=== PATIENT | female | born 1990 | race Caucasian/White ===

== ENCOUNTER 2019-01-20 10:45 | Observation (INO) ==
[2019-01-20 11:08] LABS: Microscopic, Urine URINE MICROSCOPIC (MICROSCOPIC)
[2019-01-20 11:09] LABS: Appearance,Urine CLEAR (Clear); Bilirubin,Urine Negative (Negative); Blood, Urine Negative (Negative); Color,Urine YELLOW (Yellow); Glucose,Urine (UA) Negative (Negative); Ketones,Urine Negative (Negative); Leukocyte Esterase,Urine Negative (Negative); PH,Urine 5.5 (5.0-8.5); Protein,Urine Negative (Negative); Specific Gravity, Urine >= 1.030 (1.005-1.030); Urobilinogen,Urine 0.2 EU/dl (0.2)
[2019-01-20 11:28] LABS: Bacteria,Urine 1+ /lpf; Mucus,Urine 3+ /lpf; WBC,Urine Occasional #/hpf (0-3)
--- NOTE | 2019-01-20 11:47 | Emergency Department Note ---
ED Disposition Clinical Impression: Lumbar scoliosis, Muscle spasm, RLQ abdominal pain, Fibroid uterus Disposition: Still a Patient Condition on Discharge: Fair Referrals: Kim Hayward [Primary Care Provider] - - Critical Care Critical Care Time: No Attestation: On 01/20/19, the high probability of a clinically significant, sudden or life threatening deterioration of the following system(s) required my full and direct attention, intervention and personal management. The time I documented below is in addition to time spent performing reported procedures but includes the following listed in this critical care notation. Medical Decision Making - Medical Records Medical records reviewed: Yes: I reviewed the patient's medical records. - Rodríguez Inquiry Pt receiving controlled substance: No Rodríguez was queried for this patient: No Vital Signs: 01/20/19 10:55 01/20/19 11:56 01/20/19 13:44 Temperature 99 F Temperature Source Oral Pulse Rate [Left Radial] 100 H 98 H 77 Respiratory Rate 16 18 18 Blood Pressure [Right Arm] 103/61 L 104/62 L 132/70 Blood Pressure Mean [Right Arm] 75 76 90 Blood Pressure Source [Right Arm] Automatic Cuff Automatic Cuff Automatic Cuff Blood Pressure Position [Right Arm] Sitting Sitting Sitting 02 Sat by Pulse Oximetry 98 99 98 Oxygen Delivery Method Room Air Room Air Room Air 01/20/19 14:41 Temperature Temperature Source Pulse Rate [Left Radial] 65 Respiratory Rate Blood Pressure [Right Arm] 98/57 L Blood Pressure Mean [Right Arm] 70 Blood Pressure Source [Right Arm] Automatic Cuff Blood Pressure Position [Right Arm] Supine 02 Sat by Pulse Oximetry 97 Oxygen Delivery Method Room Air - Lab Data Lab Results 01/20/19 10:55: Urine Color Yellow, Urine Appearance Clear, Urine pH 5.5, Ur Specific [place] >= 1.030, Urine Protein Negative, Urine Glucose (UA) Negative, Urine Ketones Negative, Urine Blood Negative, Urine Nitrate Negative, Urine Bilirubin Negative, Urine Urobilinogen 0.2, Ur Leukocyte Esterase Negative, Urine WBC Occasional, Ur Squamous Epith Cells 5-10, Urine Bacteria 1+, Urine M ucus 3+ 01/20/19 10:55: Urine HCG, Qual Negative 01/20/19 10:55: Urine Opiates Screen Negative, Urine Methadone Screen Negative, Ur Barbituates Screen Negative, Ur Phencyclidine Scrn Negative, Ur Amphetamines Screen Negative, U Benzodiazepines Scrn Negative, Urine Cocaine Screen Negative, U Marijuana (THC) Screen Negative 01/20/19 11:45: WBC 7.3, RBC 4.63, Hgb 13.3, Hct 40.3, MCV 87.2, MCH 28.7, MCHC 32.9, RDW 13.1, Plt Count 267, MPV 9.2, Neut % (Auto) 83.2 H, Lymph % (Auto) 13.5, [place] % (Auto) 2.9, Eos % (Auto) 0.3, Baso % (Auto) 0.2, Neut # (Auto) 6.1, Lymph # (Auto) 1.0, [place] # (Auto) 0.2, Eos # (Auto) 0.0, Baso # (Auto) 0.0 01/20/19 11:45: Sodium 138, Potassium 3.6, Chloride 102, Carbon Dioxide 25, Anion Gap 14.6, BUN 9, Creatinine 0.67, Estimated Creat Clear 121, Estimated GFR 103, Est GFR ( Amer) 125, Glucose 110 H, Calcium 8.7, Total Bilirubin 0.2, AST 13 L, ALT 15, Alkaline Phosphatase 73, Total Protein 7.7, Albumin 3.9, Globulin 3.8 H, Albumin/Globulin Ratio 1.0 L, Lipase 83, Plasma/Serum Alcohol 0 01/20/19 11:45: Lactate 0.7 01/20/19 11:56: Influenza Type A Ag Negative, Influenza Type B Ag Negative 01/20/19 11:56: Group A Strep Rapid Negative Result diagrams: 01/20/19 11:45 01/20/19 11:45 Orders (Tests/Meds): ED MEDICATIONS Discontinued Medications Generic Name Dose Route Start Last Admin Trade Name Freq PRN Reason Stop Dose Admin Diatrizoate Meglum/Diatrizoate Sod 30 ml 01/20/19 11:42 01/20/19 12:03 Gastrografin 66%-10% 30ml PO 01/20/19 11:43 30 ml ONCE ONE Administration Ioversol 75 ml 01/20/19 14:19 01/20/19 14:23 Rad-Optiray 350 100ml Vial IV 01/20/19 14:20 75 ml ONCE ONE Administration Ketorolac Tromethamine 30 mg 01/20/19 11:42 01/20/19 12:03 Toradol 30mg/Ml Vial IV 01/20/19 11:43 30 mg ONCE ONE Administration Morphine Sulfate 2 mg 01/20/19 14:44 01/20/19 14:57 Morphine 2mg/Ml Syringe IV 01/20/19 14:45 2 mg ONCE ONE Administration Sodium Chloride 10 ml 01/20/19 14:19 01/20/19 14:23 Rad-Saline Flush 10ml Syringe IV 01/20/19 14:20 10 ml ONCE ONE Administration ORDERS Category Date Time Status CT abdomen pelvis w con Stat Cat Scan 01/20/19 11:42 Taken Blood Culture Stat Micro 01/20/19 11:45 Received Strep Screen Confirmation Stat Micro 01/20/19 11:56 Received Medical Decision Narrative: I reviewed the CT scan with Dr. Graham the radiologist who suspected early appendicitis due to the large size of the appendix 1 cm and partial filling. There is no local inflammation. I spoke with the patient was agreeable to be admitted to [facility] for possible early appendicitis. 1500 spoke with on-call surgeon Dr. Melgoza who agreed to admit the patient for observation General Adult HPI - General Chief complaint: PAIN Stated complaint: lower back pain, fever Time Seen by Provider: 01/20/19 11:00 Mode of Arrival: Ambulatory Limitations: No Limitations Description of Symptoms (Recalled from ER Triage Doc. by RN): to ed per pvt car with c/o lt side lower back pain radiates to rt side, fever starting lastnight. denies any nausea, vomiting, urinary symptoms. cpta tylenol 1gm at 9am - History of Present Illness HPI narrative: Years old white female 2 para 2 A0 last menstrual period was 2 weeks ago. She has past medical history of scoliosis, no past surgical history, her had a vasectomy. She is on no regular medications and has allergy to sulfa. She had a drink at 8 PM last night otherwise she has no habits habits of medical importance. Yesterday at midnight she developed left lower back pain that is rated 9/10. The detected subjective fever, this morning she took Tylenol and returned to [place] be seen in [facility] ED. The patient continues to complain of left lower back pain rated 7/10 sharp in character worse with movement. She has diffuse nonspecific abdominal pain with no nausea no vomiting no diarrhea. She had small bowel movement yesterday. Onset (ago): hour(s) (11 hours.) Location: back, abdomen Radiation: non-radiation Severity: severe Severity scale (1-10): 9 Quality: sharp Consistency: constant Relieving factors: immobilization, rest, other (She is laying on the left side in a position. ) Exacerbating factors: movement Associated symptoms: fever/chills Treatments prior to arrival: other ([id number] Tylenol. ) - Related Data Home Medications Medication Instructions Recorded Confirmed No Known Home Medications 01/20/19 01/20/19 Allergies Allergy/AdvReac Type Severity Reaction Status Date / Time azithromycin Allergy Mild Verified 12/24/18 15:37 Sulfa (Sulfonamide Allergy Mild Verified 12/24/18 15:37 Antibiotics) [facility] History - Hepatitis A Screen Drug use history?: No High risk sexual behaviors?: No History of sexually transmitted infection?: No Currently employed?: No Childcare worker?: No Do you have indoor plumbing?: No Do you have electricity?: Yes Attestation statement:: This patient has been screened for Hepatitis A risk factors. I have reviewed the patient's past medical history: Yes - Social History Smoking Status: Current every day smoker Tobacco Type: cigarettes # Packs/Day (cigarettes): 0 Alcohol Intake: never Occupational Status: employed - Psychiatric History Expresses thoughts of harming self/others: None Suicide Plan Description: No Plan ROS Obtained: Yes All systems reviewed & no additional complaints Physical Exam - General General appearance: alert, in no apparent distress - Head Head exam: atraumatic, normocephalic, normal inspection - Eye Eye exam: Present: normal appearance, PERRL, EOMI. Absent: scleral icterus, nystagmus - ENT ENT exam: Present: normal exam, normal oropharynx, mucous membranes moist, TM's normal bilaterally, normal external ear exam - Neck Neck exam: Present: normal inspection, full ROM, trachea midline. Absent: tenderness, meningismus, lymphadenopathy - Chest Chest inspection: Present: normal inspection, symmetric chest wall rise. Absent : tenderness - Respiratory Respiratory exam: Present: normal lung sounds bilaterally. Absent: respiratory distress, wheezes - Cardiovascular Cardiovascular exam: Present: regular rate, normal rhythm, normal heart sounds. Absent: JVD - Abdominal Exam Abdominal exam: Present: soft, tenderness, normal bowel sounds, tenderness at McBurney's Point, other (Soft abdomen with right lower quadrant rebound tenderness no guarding no rigidity, positive bowel sounds. ). Absent: distention, guarding, rebound, rigidity, Mathis's sign - External exam: Present: normal external exam - Extremities Exam Extremities exam: Present: normal inspection, full ROM, normal capillary refill, other (Equal bilateral femoral pulse.). Absent: tenderness, pedal edema, joint swelling, calf tenderness - Back Exam Back exam: Present: normal inspection, tenderness, muscle spasm, paraspinal tenderness, other (Severe lumbosacral kyphoscoliosis with palpable left lumbar paraspinal muscle spasm. ). Absent: CVA tenderness (R), CVA tenderness (L), vertebral tenderness - Neurological Exam Neurological exam: Present: alert, oriented X3, CN II-XII intact, motor sensory deficit, reflexes normal - Psychiatric Psychiatric exam: Present: normal affect, normal mood - Skin Skin exam: Present: warm, dry, intact, normal color - Lymphatic Lymphatic Findings: no adenopathy
[2019-01-20 12:11] LABS: Basophils % 0.2 % (0.1-2.0); Eosinophils % 0.3 % (0.1-12.0); Hematocrit 40.3 % (37.0-47.0); Hemoglobin 13.3 g/dL (12.2-16.2); Lymphocytes % 13.5 % (10-50); Mean Corpuscular HGB Conc 32.9 g/dL (31.8-35.4); Mean Corpuscular Hemoglobin 28.7 pg (27.0-31.2); Mean Corpuscular Volume 87.2 fl (81-99); Mean Platelet Volume 9.2 fl (7.4-10.4); Monocytes # 0.2 K/mm3 (0.1-1.0); Monocytes % 2.9 % (1.7-9.3); Neutrophils # 6.1 K/mm3 (1.8-7.8); Neutrophils % 83.2 % (37.0-80.0); Platelet Count 267 K/mm3 (142-424); Red Blood Count 4.63 M/mm3 (4.20-5.40); Red Cell Distribution Width 13.1 % (11.5-17.5); White Blood Count 7.3 K/mm3 (4.8-10.8)
[2019-01-20 12:18] LABS: Amphetamine/Metha Screen,Urine Negative ng/mL (<1000); Barbiturates Screen,Urine Negative ng/mL (<200); Benzodiazepines Screen,Urine Negative ng/mL (<200); Cannabinoid Screen,Urine Negative ng/mL (<50); Cocaine Screen,Urine Negative ng/mL (<300); Methadone Screen,Urine Negative ng/mL (<300); Opiate Screen,Urine Negative ng/mL (<300); Phencyclidine Screen,Urine Negative ng/mL (<25)
[2019-01-20 12:29] LABS: Albumin Level 3.9 gm/dL (3.4-5.0); Anion Gap 14.6 mEq/L (5-15); Bilirubin,Total 0.2 mg/dL (0.2-1.0); Calcium 8.7 mg/dL (8.5-10.1); Globulin 3.8 gm/dl (1.3-3.2); Potassium 3.6 mmoL/L (3.5-5.1); Total Protein,Serum 7.7 gm/dL (6.4-8.2)
--- NOTE | 2019-01-20 17:53 | History & Physical Report ---
HPI HPI: This is a 29-year-old female who presented to the emergency department with a 12+ hour history of pain in the mid and lower abdomen and back. She states that she had pain in her mid abdomen and left flank/back. She was concerned about a possible kidney stone. No dysuria. No hematuria. Some nausea. Some decreased appetite. Possible low-grade fevers last night. Her pain increased in intensity and began to migrate and now her most significant pain is "kind of in the lower abdomen on both sides". She does state that she is more tender in the right lower quadrant. A CT scan in the emergency department revealed changes consistent with early appendicitis. [facility] History Medical History: Denies:: Cancer, Diabetes Mellitus Type 1, Diabetes Mellitus Type 2, MRSA *Have you ever received a pneumonia vaccine?: No *Have you received a flu vaccine this season?: Yes Amputation: No Fractures: No - *Social History Educational Level: Attended College Smoking Status: Current some day smoker Tobacco Type: cigarettes # Packs/Day (cigarettes): 1 Alcohol Intake: never *Occupational Status:: employed Housing: house Household Members: spouse *Travel in the last 8 weeks: None - Psychiatric History Expresses thoughts of harming self/others: None Suicide Plan Description: No Plan Family Hx:: Cancer, Coronary Artery Disease, Diabetes, Hyperlipidemia Review of Systems - Constitutional Reports anorexia, Denies chills - Eyes Denies change in vision - ENT Denies change in voice - *Cardiovascular Denies chest pain - *Respiratory Denies cough - *Gastrointestinal Reports abdominal pain, Reports nausea - *Genitourinary Denies abnormal vaginal bleeding - *Musculoskeletal Denies joint pain - Integumentary/Breasts Denies hair loss - *Neurologic Denies abnormal movements - Psychiatric Denies anxiety - Endocrine Denies cold intolerance - Hematologic/Lymphatic Denies easy bleeding - Allergic/Immunologic Denies GI upset with certain foods Meds Home Medications Medication Instructions Recorded Confirmed Type No Known Home Medications 01/20/19 01/20/19 History Allergies Allergy/AdvReac Type Severity Reaction Status Date / Time azithromycin Allergy Mild Verified 12/24/18 15:37 Sulfa (Sulfonamide Allergy Mild Verified 12/24/18 15:37 Antibiotics) Exam Vital signs and Labs for Last 24 Hours: Temp Pulse Resp BP Pulse Ox 97.8 F 111 H 20 109/75 L 99 01/20/19 15:58 01/20/19 15:58 01/20/19 15:58 01/20/19 15:58 01/20/19 16:15 Laboratory Results - last 24 hr 01/20/19 10:55: Urine Color Yellow, Urine Appearance Clear, Urine pH 5.5, Ur Specific [place] >= 1.030, Urine Protein Negative, Urine Glucose (UA) Negative, Urine Ketones Negative, Urine Blood Negative, Urine Nitrate Negative, Urine Bilirubin Negative, Urine Urobilinogen 0.2, Ur Leukocyte Esterase Negative, Urine WBC Occasional, Ur Squamous Epith Cells 5-10, Urine Bacteria 1+, Urine Mucus 3+ 01/20/19 10:55: Urine HCG, Qual Negative 01/20/19 10:55: Urine Opiates Screen Negative, Urine Methadone Screen Negative, Ur Barbituates Screen Negative, Ur Phencyclidine Scrn Negative, Ur Amphetamines Screen Negative, U Benzodiazepines Scrn Negative, Urine Cocaine Screen Negative, U Marijuana (THC) Screen Negative 01/20/19 11:45: WBC 7.3, RBC 4.63, Hgb 13.3, Hct 40.3, MCV 87.2, MCH 28.7, MCHC 32.9, RDW 13.1, Plt Count 267, MPV 9.2, Neut % (Auto) 83.2 H, Lymph % (Auto) 13.5, [place] % (Auto) 2.9, Eos % (Auto) 0.3, Baso % (Auto) 0.2, Neut # (Auto) 6.1, Lymph # (Auto) 1.0, [place] # (Auto) 0.2, Eos # (Auto) 0.0, Baso # (Auto) 0.0 01/20/19 11:45: Sodium 138, Potassium 3.6, Chloride 102, Carbon Dioxide 25, Anion Gap 14.6, BUN 9, Creatinine 0.67, Estimated Creat Clear 121, Estimated GFR 103, Est GFR ( Amer) 125, Glucose 110 H, Calcium 8.7, Total Bilirubin 0.2, AST 13 L, ALT 15, Alkaline Phosphatase 73, Total Protein 7.7, Albumin 3.9, Globulin 3.8 H, Albumin/Globulin Ratio 1.0 L, Lipase 83, Plasma/Serum Alcohol 0 01/20/19 11:45: Lactate 0.7 01/20/19 11:56: Influenza Type A Ag Negative, Influenza Type B Ag Negative 01/20/19 11:56: Group A Strep Rapid Negative I & O for Last 24 hours: Intake & Output 01/18/19 01/19/19 01/20/19 01/21/19 11:59 11:59 11:59 11:59 Intake Total 240 / 240 Balance 240 / 240 Weight 138 lb 140 lb - Constitutional no acute distress - *Routine HEENT Exam Head: Present: normocephalic, atraumatic ENT: Present: mucous membranes moist - *Routine Neck Exam Present: full ROM - Routine Chest/Breast/Axilla Exam Chest wall: Absent: tenderness - *Routine Respiratory Exam Absent: respiratory distress - *Routine Cardiovascular Exam Present: RRR - *Routine Abdominal Exam Present: soft, tenderness, guarding Comments: TTP is worse in RLQ Voluntary guarding the right lower quadrant - *Routine Extremities Exam Present: full ROM. Absent: cyanosis, clubbing, edema - Routine Back/Spine/Pelvis Exam Back/Spine: Present: full ROM - *Routine Skin Exam Present: intact - *Routine Neurological Exam Present: alert, oriented X3 - Routine Psychiatric Exam Present: normal affect Results - Results Lab Results Last 24 Hours:: Laboratory Results - last 24 hr 01/20/19 10:55: Urine Color Yellow, Urine Appearance Clear, Urine pH 5.5, Ur Specific [place] >= 1.030, Urine Protein Negative, Urine Glucose (UA) Negative, Urine Ketones Negative, Urine Blood Negative, Urine Nitrate Negative, Urine Bi lirubin Negative, Urine Urobilinogen 0.2, Ur Leukocyte Esterase Negative, Urine WBC Occasional, Ur Squamous Epith Cells 5-10, Urine Bacteria 1+, Urine Mucus 3+ 01/20/19 10:55: Urine HCG, Qual Negative 01/20/19 10:55: Urine Opiates Screen Negative, Urine Methadone Screen Negative, Ur Barbituates Screen Negative, Ur Phencyclidine Scrn Negative, Ur Amphetamines Screen Negative, U Benzodiazepines Scrn Negative, Urine Cocaine Screen Negative, U Marijuana (THC) Screen Negative 01/20/19 11:45: WBC 7.3, RBC 4.63, Hgb 13.3, Hct 40.3, MCV 87.2, MCH 28.7, MCHC 32.9, RDW 13.1, Plt Count 267, MPV 9.2, Neut % (Auto) 83.2 H, Lymph % (Auto) 13.5, [place] % (Auto) 2.9, Eos % (Auto) 0.3, Baso % (Auto) 0.2, Neut # (Auto) 6.1, Lymph # (Auto) 1.0, [place] # (Auto) 0.2, Eos # (Auto) 0.0, Baso # (Auto) 0.0 01/20/19 11:45: Sodium 138, Potassium 3.6, Chloride 102, Carbon Dioxide 25, Anion Gap 14.6, BUN 9, Creatinine 0.67, Estimated Creat Clear 121, Estimated GFR 103, Est GFR ( Amer) 125, Glucose 110 H, Calcium 8.7, Total Bilirubin 0.2, AST 13 L, ALT 15, Alkaline Phosphatase 73, Total Protein 7.7, Albumin 3.9, Globulin 3.8 H, Albumin/Globulin Ratio 1.0 L, Lipase 83, Plasma/Serum Alcohol 0 01/20/19 11:45: Lactate 0.7 01/20/19 11:56: Influenza Type A Ag Negative, Influenza Type B Ag Negative 01/20/19 11:56: Group A Strep Rapid Negative CT scan - abdomen: report reviewed, image reviewed CT scan - pelvis: report reviewed, image reviewed Assessment and Plan (1) Appendicitis Current visit: Yes Status: Acute Qualifiers: Appendicitis type: acute appendicitis Appendicitis gangrene presence: without gangrene Appendicitis perforation presence: without perforation Appendicitis abscess presence: without abscess Category: Medical Code(s): K37 - Unspecified appendicitis She is being scheduled for laparoscopic appendectomy. I have discussed the risks and benefits including, but not limited to: Bleeding Infection Damage to surrounding tissue Inherent risks of sedation The patient agrees to proceed.
--- NOTE | 2019-01-20 19:49 | Operative Note ---
Date of procedure: 01/20/19 Pre-op Diagnosis:: Appendicitis Post-op Diagnosis:: Same Procedure performed:: Laparoscopic appendectomy Surgeon:: Dainel Hernandez MD ASSISTANT MANAGER/EMBALMER:: Evan Wayne Anesthesia: KEHINDE Estimated blood loss (mL): 10 Operative findings:: Inflamed/thickened/enlarged appendix (most significant distally) Operative note:: After informed consent was obtained the patient was taken to the operating room and placed in the supine position. General anesthesia was induced and her abdomen was prepped and draped in a sterile fashion. After infiltration of local anesthetic an infraumbilical incision was made. A Veress needle was placed in position. The abdomen was insufflated. A 12 mm optical trocar was placed in position. Under direct visualization a 5 mm trocar was placed in the suprapubic position and an additional 5 mm trocar was placed in the left lower quadrant. The appendix was carefully elevated. The appendix was somewhat inflamed and enlarged/thickened with these findings found to be more pronounced distally. A window was made in the mesoappendix at its base. An EndoGIA stapler was utilized to transect the appendix at the base. The mesoappendix was taken with harmonic stewart. The appendix was placed in a retrieval bag and removed through the infraumbilical trocar site. The right lower quadrant was thoroughly irrigated. The irrigant was evacuated. No sign of bleeding or injury noted. Fascia at the infraumbilical trocar site was reapproximated with interrupted 0 Ethibond after pneumoperitoneum was released. The remaining trocars were removed. Skin was closed with 4-0 Monocryl in a subcuticular fashion. Steri-Strips were applied. The patient's anesthetic agents were rever sed and she was extubated prior to transfer to recovery. Condition: stable Disposition: PACU Specimens:: Appendix Complications:: No immediate
--- NOTE | 2019-01-20 19:50 | Progress Note ---
[facility] Anesthesia Checklist - Patient Identification Patient Identification: Arm Band - Structural Data Admitted From: Inpatient Planned Operative Procedure/s: laparoscopic appendectomy Consent for Planned Operative Procedure(s) Verified: Yes Verified Documents: Surgical Consent, History and Physical - NPO Status Verified Time NPO: 00:00 - Additional verifications Anesthesia Reactions: No - Airway Assessment C-Spine Mobility Assessed: Yes (mp2) TMJ Mobility Assessed: Yes Dentition: Good Dentition - Neurological Assessment Level of Consciousness: Awake, Alert - Anesthesia Plan Anesthesia Risk discussed: Yes Anesthesia Plan: Verified ASA Class: II (e) [facility] History I have reviewed the patient's past medical history: Yes Medical History: Denies:: Cancer, Diabetes Mellitus Type 1, Diabetes Mellitus Type 2, MRSA *Have you ever received a pneumonia vaccine?: No *Have you received a flu vaccine this season?: Yes Other Surgeries: Yes: Other (bladder surgery) Amputation: No Fractures: No - *Social History Educational Level: Attended College Smoking Status: Current some day smoker Tobacco Type: cigarettes # Packs/Day (cigarettes): 1 Alcohol Intake: never *Occupational Status:: employed Housing: house Household Members: spouse *Travel in the last 8 weeks: None - Psychiatric History Expresses thoughts of harming self/others: None Suicide Plan Description: No Plan Family Hx:: Cancer, Coronary Artery Disease, Diabetes, Hyperlipidemia
--- NOTE | 2019-01-20 19:51 | Progress Note ---
[facility] Anesthesia Record Part I Intake, IV Amount: 1,300 Estimated blood loss (mL): 10 Urine output (mL): 100 Blood Pressure: 126/70 SaO2: 97 Pulse Rate: 96 Respiratory Rate: 16 Temperature: 98.7 F Patient is:: Drowsy, Stable Stable to PACU at:: 19:45
--- NOTE | 2019-01-20 19:51 | Progress Note ---
[facility] Anesthesia Record Part II Discharge Time: 20:15 Destination: 2nd floor PACU nurse assessment reviewed?: Yes Patient Condition:: Good Anesthesia Complications:: None Swallowing reflex intact?: Yes Cyanosis?: No
[2019-01-21 04:55] LABS: Hemoglobin 10.8 g/dL (12.2-16.2); Lymphocytes # 0.5 K/mm3 (0.7-4.5); Mean Corpuscular HGB Conc 32.6 g/dL (31.8-35.4); Mean Corpuscular Hemoglobin 28.8 pg (27.0-31.2); Mean Corpuscular Volume 88.3 fl (81-99); Monocytes # 0.1 K/mm3 (0.1-1.0); Neutrophils # 7.1 K/mm3 (1.8-7.8); Platelet Count 215 K/mm3 (142-424); Red Blood Count 3.73 M/mm3 (4.20-5.40); Red Cell Distribution Width 13.4 % (11.5-17.5); White Blood Count 7.7 K/mm3 (4.8-10.8)
[2019-01-21 04:57] LABS: Anion Gap 11.8 mEq/L (5-15); Calcium 8.1 mg/dL (8.5-10.1); Potassium 3.8 mmoL/L (3.5-5.1)
[2019-01-21 05:07] LABS: Lymphocytes % 3 % (10-50); Neutrophils % 86 % (42-76); RBC Morphology Normal; Total Cells Counted 100
--- NOTE | 2019-01-21 09:07 | Pharmacy Consult Notes ---
[facility] Pharmacy VTE Monitoring - Patient Demographics Admission date: 01/20/19 Report Date: 01/21/19 Time: 09:07 Allergies/Adverse Reactions: Patient Allergies azithromycin Allergy (Mild, Verified 12/24/18 15:37) Sulfa (Sulfonamide Antibiotics) Allergy (Mild, Verified 12/24/18 15:37) Height: 1.73 m Weight: 63.503 kg Patient Problems: Current Active Problems Lumbar scoliosis (Acute) Muscle spasm (Acute) RLQ abdominal pain (Acute) Fibroid uterus (Acute) Appendicitis (Acute) - VTE Risk Labs: VTE Related Lab Results Hgb 10.8 g/dL (12.2-16.2) L D 01/21/19 04:25 Hct 33.0 % (37.0-47.0) L 01/21/19 04:25 Plt Count 215 K/mm3 (142-424) 01/21/19 04:25 BUN 5 mg/dL (7-18) L D 01/21/19 04:25 Creatinine 0.59 mg/dL (0.55-1.02) 01/21/19 04:25 Estimated Creat Clear 140 mL/min (50-200) 01/21/19 04:25 Was VTE Risk Assessment Performed: Yes VTE Score: 0 VTE Risk Level: Very Low Risk - Prophylaxis VTE Prophylaxis Ordered?: Yes Types of VTE Prophylaxis: TEDS Knee High Location of Applied Device: Bilateral Lower Extremeties - VTE Diagnosis Confirmed Treatment or plan recommended: Continue Current Treatment
--- NOTE | 2019-01-21 09:14 | Progress Note ---
Subjective Patient reports: feels better Exam Vital signs and Labs for Last 24 Hours: Temp Pulse Resp BP Pulse Ox 98.8 F 76 16 96/50 L 98 01/21/19 08:00 01/21/19 08:00 01/21/19 08:00 01/21/19 08:00 01/21/19 08:03 Laboratory Results - last 24 hr 01/20/19 10:55: Urine Color Yellow, Urine Appearance Clear, Urine pH 5.5, Ur Specific [place] >= 1.030, Urine Protein Negative, Urine Glucose (UA) Negative, Urine Ketones Negative, Urine Blood Negative, Urine Nitrate Negative, Urine Bilirubin Negative, Urine Urobilinogen 0.2, Ur Leukocyte Esterase Negative, Urine WBC Occasional, Ur Squamous Epith Cells 5-10, Urine Bacteria 1+, Urine Mucus 3+ 01/20/19 10:55: Urine HCG, Qual Negative 01/20/19 10:55: Urine Opiates Screen Negative, Urine Methadone Screen Negative, Ur Barbituates Screen Negative, Ur Phencyclidine Scrn Negative, Ur Amphetamines Screen Negative, U Benzodiazepines Scrn Negative, Urine Cocaine Screen Negative, U Marijuana (THC) Screen Negative 01/20/19 11:45: WBC 7.3, RBC 4.63, Hgb 13.3, Hct 40.3, MCV 87.2, MCH 28.7, MCHC 32.9, RDW 13.1, Plt Count 267, MPV 9.2, Neut % (Auto) 83.2 H, Lymph % (Auto) 13.5, [place] % (Auto) 2.9, Eos % (Auto) 0.3, Baso % (Auto) 0.2, Neut # (Auto) 6.1, Lymph # (Auto) 1.0, [place] # (Auto) 0.2, Eos # (Auto) 0.0, Baso # (Auto) 0.0 01/20/19 11:45: Sodium 138, Potassium 3.6, Chloride 102, Carbon Dioxide 25, Anion Gap 14.6, BUN 9, Creatinine 0.67, Estimated Creat Clear 121, Estimated GFR 103, Est GFR ( Amer) 125, Glucose 110 H, Calcium 8.7, Total Bilirubin 0 .2, AST 13 L, ALT 15, Alkaline Phosphatase 73, Total Protein 7.7, Albumin 3.9, Globulin 3.8 H, Albumin/Globulin Ratio 1.0 L, Lipase 83, Plasma/Serum Alcohol 0 01/20/19 11:45: Lactate 0.7 01/20/19 11:56: Influenza Type A Ag Negative, Influenza Type B Ag Negative 01/20/19 11:56: Group A Strep Rapid Negative 01/20/19 18:40: Urine Color Yellow, Urine Appearance Clear, Urine pH 7.5, Ur Specific [place] 1.015, Urine Protein Negative, Urine Glucose (UA) Negative, Urine Ketones Negative, Urine Blood Negative, Urine Nitrate Negative, Urine Bilirubin Negative, Urine Urobilinogen 0.2, Ur Leukocyte Esterase Negative, Urine WBC 3-5, Ur Squamous Epith Cells 5-10, Ur Renal Epithelial Cell 3-5 01/21/19 04:25: WBC 7.7, RBC 3.73 L, Hgb 10.8 L D, Hct 33.0 L, MCV 88.3, MCH 28.8, MCHC 32.6, RDW 13.4, Plt Count 215, MPV 10.0, Neut % (Auto) 92.0 H, Lymph % (Auto) 7.0 L, [place] % (Auto) 1.0 L, Eos % (Auto) 0.0 L, Baso % (Auto) 0.0 L, Neut # (Auto) 7.1, Lymph # (Auto) 0.5 L, [place] # (Auto) 0.1, Eos # (Auto) 0.0, Baso # (Auto) 0.0, Total Counted 100, Neutrophils % (Manual) 86 H, Band Neutrophils % 11.0 H, Lymphocytes % (Manual) 3 L, Platelet Estimate Normal, RBC Morphology Normal 01/21/19 04:25: Sodium 140, Potassium 3.8, Chloride 106, Carbon Dioxide 26, Anion Gap 11.8, BUN 5 L D, Creatinine 0.59, Estimated Creat Clear 140, Estimated GFR 120, Est GFR ( Amer) 145, Glucose 161 H D, Calcium 8.1 L I & O for Last 24 hours: Intake & Output 01/18/19 01/19/19 01/20/19 01/21/19 11:59 11:59 11:59 11:59 Intake Total 3300 / 3300 Balance 3300 / 3300 Weight 138 lb 140 lb Microbiology Reports for the Last 24 Hours: Microbiology 01/20/19 11:56 Throat Group A Streptococcus Screen (DONELL) - Final Negative for Group A Streptococcus. - Constitutional no acute distress - *Routine Respiratory Exam Absent: respiratory distress - *Routine Abdominal Exam Present: soft Comments: dressings dry Progress Note: A&P (1) Appendicitis Status: Acute Assessment and plan: stable s/p laparoscopic appendectomy Discharge home Current Visit: Yes
--- NOTE | 2019-01-21 09:14 | Discharge Summary ---
General - General Admission date:: 01/20/19 Discharge date: 01/21/19 HPI HPI: This is a 29-year-old female who presented to the emergency department with a 12+ hour history of pain in the mid and lower abdomen and back. She states that she had pain in her mid abdomen and left flank/back. She was concerned about a possible kidney stone. No dysuria. No hematuria. Some nausea. Some decreased appetite. Possible low-grade fevers last night. Her pain increased in intensity and began to migrate and now her most significant pain is "kind of in the lower abdomen on both sides". She does state that she is more tender in the right lower quadrant. A CT scan in the emergency department revealed changes consistent with early appendicitis. Hospital Course Hospital Course: The patient underwent laparoscopic appendectomy. Please see operative report for detail. Postoperatively she progressed well. She remained afebrile with stable and normal vital signs. She was deemed appropriate for discharge on the morning of postoperative day 1. Objective Vital signs: Temp Pulse Resp BP Pulse Ox 98.8 F 76 16 96/50 L 98 01/21/19 08:00 01/21/19 08:00 01/21/19 08:00 01/21/19 08:00 01/21/19 08:03 no acute distress - *Routine HEENT Exam Head: Present: normocephalic, atraumatic - *Routine Neck Exam Present: full ROM - Routine Chest/Breast/Axilla Exam Chest wall: Absent: tenderness - *Routine Respiratory Exam Absent: respiratory distress - *Routine Cardiovascular Exam Present: RRR - *Routine Abdominal Exam Present: soft, tenderness Comments: mildly TTP in RLQ - *Routine Extremities Exam Present: full ROM - Routine Back/Spine/Pelvis Exam Back/Spine: Present: full ROM - *Routine Skin Exam Present: intact - *Routine Neurological Exam Present: alert, oriented X3 - Routine Psychiatric Exam Present: normal affect Results Labs on day of discharge: Labs from last 24 hours 01/21/19 01/21/19 01/20/19 04:25 04:25 18:40 WBC 7.7 RBC 3.73 L Hgb 10.8 L D Hct 33.0 L MCV 88.3 MCH 28.8 MCHC 32.6 RDW 13.4 Plt Count 215 MPV 10.0 Neut % (Auto) 92.0 H Lymph % (Auto) 7.0 L [place] % (Auto) 1.0 L Eos % (Auto) 0.0 L Baso % (Auto) 0.0 L Neut # (Auto) 7.1 Lymph # (Auto) 0.5 L [place] # (Auto) 0.1 Eos # (Auto) 0.0 Baso # (Auto) 0.0 Total Counted 100 Neutrophils % (Manual) 86 H Band Neutrophils % 11.0 H Lymphocytes % (Manual) 3 L Platelet Estimate Normal RBC Morphology Normal Sodium 140 Potassium 3.8 Chloride 106 Carbon Dioxide 26 Anion Gap 11.8 BUN 5 L D Creatinine 0.59 Estimated Creat Clear 140 Estimated GFR 120 Est GFR ( Amer) 145 Glucose 161 H D Lactate Calcium 8.1 L Total Bilirubin AST ALT Alkaline Phosphatase Total Protein Albumin Globulin Albumin/Globulin Ratio Lipase Urine Color Yellow Urine Appearance Clear Urine pH 7.5 Ur Specific [place] 1.015 Urine Protein Negative Urine Glucose (UA) Negative Urine Ketones Negative Urine Blood Negative Urine Nitrate Negative Urine Bilirubin Negative Urine Urobilinogen 0.2 Ur Leukocyte Esterase Negative Urine WBC 3-5 Ur Squamous Epith Cells 5-10 Ur Renal Epithelial Cell 3-5 Urine Bacteria Urine Mucus Urine HCG, Qual Urine Opiates Screen Urine Methadone Screen Ur Barbituates Screen Ur Phencyclidine Scrn Ur Amphetamines Screen U Benzodiazepines Scrn Urine Cocaine Screen U Marijuana (THC) Screen Plasma/Serum Alcohol Influenza Type A Ag Influenza Type B Ag Group A Strep Rapid 01/20/19 01/20/19 01/20/19 11:56 11:56 11:45 WBC RBC Hgb Hct MCV MCH MCHC RDW Plt Count MPV Neut % (Auto) Lymph % (Auto) [place] % (Auto) Eos % (Auto) Baso % (Auto) Neut # (Auto) Lymph # (Auto) [place] # (Auto) Eos # (Auto) Baso # (Auto) Total Counted Neutrophils % (Manual) Band Neutrophils % Lymphocytes % (Manual) Platelet Estimate RBC Morphology Sodium Potassium Chloride Carbon Dioxide Anion Gap BUN Creatinine Estimated Creat Clear Estimated GFR Est GFR ( Amer) Glucose Lactate 0.7 Calcium Total Bilirubin AST ALT Alkaline Phosphatase Total Protein Albumin Globulin Albumin/Globulin Ratio Lipase Urine Color Urine Appearance Urine pH Ur Specific [place] Urine Protein Urine Glucose (UA) Urine Ketones Urine Blood Urine Nitrate Urine Bilirubin Urine Urobilinogen Ur Leukocyte Esterase Urine WBC Ur Squamous Epith Cells Ur Renal Epithelial Cell Urine Bacteria Urine Mucus Urine HCG, Qual Urine Opiates Screen Urine Methadone Screen Ur Barbituates Screen Ur Phencyclidine Scrn Ur Amphetamines Screen U Benzodiazepines Scrn Urine Cocaine Screen U Marijuana (THC) Screen Plasma/Serum Alcohol Influenza Type A Ag Negative Influenza Type B Ag Negative Group A Strep Rapid Negative 01/20/19 01/20/19 01/20/19 11:45 11:45 10:55 WBC 7.3 RBC 4.63 Hgb 13.3 Hct 40.3 MCV 87.2 MCH 28.7 MCHC 32.9 RDW 13.1 Plt Count 267 MPV 9.2 Neut % (Auto) 83.2 H Lymph % (Auto) 13.5 [place] % (Auto) 2.9 Eos % (Auto) 0.3 Baso % (Auto) 0.2 Neut # (Auto) 6.1 Lymph # (Auto) 1.0 [place] # (Auto) 0.2 Eos # (Auto) 0.0 Baso # (Auto) 0.0 Total Counted Neutrophils % (Manual) Band Neutrophils % Lymphocytes % (Manual) Platelet Estimate RBC Morphology Sodium 138 Potassium 3.6 Chloride 102 Carbon Dioxide 25 Anion Gap 14.6 BUN 9 Creatinine 0.67 Estimated Creat Clear 121 Estimated GFR 103 Est GFR ( Amer) 125 Glucose 110 H Lactate Calcium 8.7 Total Bilirubin 0.2 AST 13 L ALT 15 Alkaline Phosphatase 73 Total Protein 7.7 Albumin 3.9 Globulin 3.8 H Albumin/Globulin Ratio 1.0 L Lipase 83 Urine Color Urine Appearance Urine pH Ur Specific [place] Urine Protein Urine Glucose (UA) Urine Ketones Urine Blood Urine Nitrate Urine Bilirubin Urine Urobilinogen Ur Leukocyte Esterase Urine WBC Ur Squamous Epith Cells Ur Renal Epithelial Cell Urine Bacteria Urine Mucus Urine HCG, Qual Urine Opiates Screen Negative Urine Methadone Screen Negative Ur Barbituates Screen Negative Ur Phencyclidine Scrn Negative Ur Amphetamines Screen Negative U Benzodiazepines Scrn Negative Urine Cocaine Screen Negative U Marijuana (THC) Screen Negative Plasma/Serum Alcohol 0 Influenza Type A Ag Influenza Type B Ag Group A Strep Rapid 01/20/19 01/20/19 10:55 10:55 WBC RBC Hgb Hct MCV MCH MCHC RDW Plt Count MPV Neut % (Auto) Lymph % (Auto) [place] % (Auto) Eos % (Auto) Baso % (Auto) Neut # (Auto) Lymph # (Auto) [place] # (Auto) Eos # (Auto) Baso # (Auto) Total Counted Neutrophils % (Manual) Band Neutrophils % Lymphocytes % (Manual) Platelet Estimate RBC Morphology Sodium Potassium Chloride Carbon Dioxide Anion Gap BUN Creatinine Estimated Creat Clear Estimated GFR Est GFR ( Amer) Glucose Lactate Calcium Total Bilirubin AST ALT Alkaline Phosphatase Total Protein Albumin Globulin Albumin/Globulin Ratio Lipase Urine Color Yellow Urine Appearance Clear Urine pH 5.5 Ur Specific [place] >= 1.030 Urine Protein Negative Urine Glucose (UA) Negative Urine Ketones Negative Urine Blood Negative Urine Nitrate Negative Urine Bilirubin Negative Urine Urobilinogen 0.2 Ur Leukocyte Esterase Negative Urine WBC Occasional Ur Squamous Epith Cells 5-10 Ur Renal Epithelial Cell Urine Bacteria 1+ Urine Mucus 3+ Urine HCG, Qual Negative Urine Opiates Screen Urine Methadone Screen Ur Barbituates Screen Ur Phencyclidine Scrn Ur Amphetamines Screen U Benzodiazepines Scrn Urine Cocaine Screen U Marijuana (THC) Screen Plasma/Serum Alcohol Influenza Type A Ag Influenza Type B Ag Group A Strep Rapid DS: Diagnosis - Discharge Diagnosis (1) Appendicitis Status: Acute Discharge Plan - Patient Discharge Instructions ACTIVITY: No heavy lifting DIET: advance to your usual diet Patient Instructions: DI for Appendicitis -- Adult, DI for Surgical Site Infection, Scoliosis-Adult - Follow up Plan Follow up with: Daniel Hernandez MD [Staff Physician] - (1-2 weeks) Disposition: Home, Self-Fpc Medications: Home Medications Medication Instructions Recorded Confirmed Type No Known Home Medications 01/20/19 01/20/19 History Hydrocodone/Acetaminophen [[place] 1 each PO Q4HP PRN #17 tab 01/21/19 Rx 5-325 Tablet] Prescriptions/Medication Reconciliation: New Hydrocodone/Acetaminophen [[place] 5-325 Tablet] 1 each PO Q4HP PRN #17 tab PRN Reason: pain No Action No Known Home Medications
== END 2019-01-21 10:15 | disposition home or self-care (01) ==
LOC: 2ND 10:45 → ER 10:45 → 2ND 15:52
PROVIDERS: ADMIT Surgery; ATTEND Surgery
DX: K35.80 Unspecified acute appendicitis
CPT/HCPCS: 36415; 74177; 80048; 80053; 80305; 81001; 81025; 83605; 83690; 85007; 85025; 87040; 87275; 87276; 87430; 96365; 96375; 99284; G0378; J2405; J2710; Q9967

== ENCOUNTER 2023-07-23 11:11 | Emergency (ER) | payer BC, SELFPAY ==
[2023-07-23 11:12] VITALS: BP 107/70; PULSE 76; RESP 16; TEMP 36.8; O2SAT 97; BMI 22.7
--- NOTE | 2023-07-23 11:33 | EXP.UTC ---
Discharge Plan Disposition Patient Disposition: Home, Self-Care Condition: Good Prescriptions Prescriptions: No Action No Known Home Medications Referrals Follow up/Referrals: Kim Hayward [Primary Care Provider] - See instructions Activity Restrictions/Add. Instructions Additional Instructions/Restrictions: Start antibiotics today be sure to take it as ordered with the full length of time although you should start feeling better in 24-48 hours. Change toothbrush and toothpaste 24-48 hours after starting antibiotics Tylenol or Motrin as needed for fever or pain Encourage fluids, water, Gatorade, Powerade, try cold fluids, popsicles, ice cream will make it feel better You are contagious for 24 hours. Avoid kissing anyone, no eating or drinking after anyone. You are contagious. Follow-up the ER for new or worsening symptoms or no noticeable improvement over the next 24-48 hours. Follow-up with PCP this week. Clinical Impressions Clinical Impression: Strep sore throat Instructions Patient Instructions: DI for Strep Throat Discharge ED Provider: Vera ([facility] [place] HPI General Stated complaint: sore throat congestion cough Mode of Arrival: Ambulatory Source of Information: Patient Limitations: No Limitations Time Seen by Provider: 07/23/23 11:33 Description of Symptoms (Recalled from Triage Doc. by RN): Patient complaint of cough, sinus congestion and sore throat for 5 days. States she took an at home COVID test and it was negative. son and daughter tested positive for strep HEENT Symptoms (Recalled from RN notes): Yes Resp Symptoms (Recalled from RN notes): No Skin Symptoms (Recalled from RN notes): No MS Symptoms (Recalled from RN notes): No Functional Status (Recalled from RN notes): wnl History of Present Illness Provider Complaint: 33 yr old female presents for c/o cough, sinus congestion and sore throat for 5 days. [facility] home COVID test was negative. Related Data Home Medications Medication Instructions Recorded Confirmed No Known Home Medications 01/20/19 02/21/19 Allergies Allergy/AdvReac Type Severity Reaction Status Date / Time azithromycin Allergy Mild Verified 02/21/19 13:26 Sulfa (Sulfonamide Allergy Mild Verified 02/21/19 13:26 Antibiotics) Worker's Comp Is this a Worker's Comp case?: No [facility] Disclaimer: The information contained in this section may have been updated after the patient was seen, as this information can be updated by other users. Social History , JOSHUA) Smoking Status: Current some day smoker tobacco type: cigarettes packs per day: 1 alcohol intake: never substance use type: denies use current occupational status: employed Travel in the last 8 weeks: None household members: spouse housing: house current occupational exposures/hazards: No ROS Obtained: Yes All systems reviewed & no additional complaints except as documented Constitutional Constitutional: Reports system reviewed and no additional complaints, except as documented Eyes Eyes: Reports system reviewed and no additional complaints, except as documented ENT Ears, Nose, Mouth, and Throat: Reports system reviewed and no additional complaints, except as documented, Reports as per HPI, Reports nasal congestion, Reports nasal discharge and Reports sore throat Cardiovascular Cardiovascular: Reports system reviewed and no additional complaints, except as documented Respiratory Respiratory: Reports system reviewed and no additional complaints, except as documented and Reports cough Gastrointestinal Gastrointestingal: Reports system reviewed and no additional complaints, except as documented Musculoskeletal Musculoskeletal: Reports system reviewed and no additional complaints, except as documented Integumentary/Breasts Skin/Breast: Reports system reviewed and no additional complaints, except as documented and Report
[2023-07-23 11:40] LABS: UTC Strep Screen (Rapid) Negative (Negative)
[2023-07-23 12:01] VITALS: BP 107/70; PULSE 76; RESP 16; TEMP 36.8; O2SAT 97
== END 2023-07-23 12:02 | disposition home or self-care (01) ==
PROVIDERS: Emergency Provider Nurse Practitioner Family; PCP Family Medicine
DX: J02.0 Streptococcal pharyngitis (principal); R05.9 Cough, unspecified; F17.210 Nicotine dependence, cigarettes, uncomplicated
CPT/HCPCS: 87880; 99204; 99212; 99214; G0463

== ENCOUNTER 2024-05-07 07:49 | Emergency (ER) | payer BC, SELFPAY ==
[2024-05-07] VITALS (9 sets, daily range): BP systolic 95–144; BP diastolic 66–92; PULSE 59–74; RESP 14–18; TEMP 36.6; O2SAT 98–100; BMI 23.0
[2024-05-07] MEDS: ACETAMINOPHEN 1,000MG/100ML VIAL 1000 MG IV (08:11)
[2024-05-07] MEDS: LACTATED RINGERS 1000ML 1,000 ML 999 ML IV (08:11)
[2024-05-07] MEDS: KETOROLAC 30MG/ML VIAL 15 MG IV (08:12)
--- NOTE | 2024-05-07 08:14 | HMH.EDGENADL ---
Discharge Plan Disposition Patient Disposition: Home, Self-Care Chief Complaint: Abdominal Pain Prescriptions Prescriptions: No Action amoxicillin [amoxicillin] 500 mg tablet 500 mg PO BID 10 Days Qty: 20 0RF Referrals Follow up/Referrals: Kim Hayward [Primary Care Provider] - See instructions Activity Restrictions/Add. Instructions Additional Instructions/Restrictions: Follow-up with your family doctor regarding this visit to the emergency department. Also contact your urologist and let them know that you were here, new 3 mm stone with stones in both kidneys that have not yet passed into ureters. Contact your family doctor about receiving MRI of your stomach to further characterize 17 mm mass in your liver in the setting of having previous carcinoid tumor. If you have any worsening of your condition or any other concerning signs or symptoms, return to the emergency department or your primary care doctor for further evaluation. Clinical Impressions Clinical Impression: Calcium ureterolithiasis, Liver mass Instructions Patient Instructions: DI for Acute Abdominal Pain Discharge ED Provider: Javid Smith General Adult HPI General Chief complaint: Abdominal Pain Stated complaint: R side severe pain Time Seen by Provider: 05/07/24 07:58 Mode of Arrival: Wheelchair Source of Information: Patient Limitations: No Limitations Description of Symptoms (Recalled from ER Triage Doc. by RN): pt states she has been having urinary urgency for a couple of days. pt states this am she started having R flank, R lower back, and RLQ pain that is 9/10, constant, and stabbing/sharp in nature. pt also c/o nausea. History of Present Illness HPI narrative: Please note that above description of symptoms, in this electronic medical record under categorization of recalled from ER triage doctor by RN are reflective of an initial nursing assessment, however, is not reflective of my full history and physical exam that was personally taken and clarified. Consequentially, this preceding description of symptoms, which may include the patient's categorized chief complaint in the EMR, do not reflect my personal clinical impression, and the ultimate description of history of present illness and patient stated complaints should be deferred to this section of the note. Unless stated otherwise or congruent with this section of the note, additional signs, symptoms, or incongruence should be interpreted as inaccurate with my clinical impression. Related Data Previous Rx's Medication Instructions Recorded amoxicillin 500 mg tablet 500 mg PO BID 10 days #20 tabs 07/23/23 Allergies Allergy/AdvReac Type Severity Reaction Status Date / Time azithromycin Allergy Mild Verified 05/07/24 08:02 Sulfa (Sulfonamide Allergy Mild Verified 05/07/24 08:02 Antibiotics) [facility] Disclaimer: The information contained in this section may have been updated after the patient was seen, as this information can be updated by other users. Social History , [employer]) Smoking Status: Current every day smoker tobacco type: cigarettes packs per day: 1 alcohol intake: never substance use type: denies use current occupational status: employed Travel in the last 8 weeks: None household members: spouse housing: house current occupational exposures/hazards: No ROS Obtained: Yes All systems reviewed & no additional complaints except as documented Physical Exam General General appearance: alert and in no apparent distress (But uncomfortable appearing) Head Head exam: atraumatic and normocephalic Eye Eye exam: Present normal appearance, PERRL and EOMI ENT ENT exam: Present mucous membranes moist Neck Neck exam: Present normal inspection, full ROM and trachea midline Respiratory Respiratory exam: Absent respiratory distress, wheezes, stridor, accessory muscle use or prolonged expiratory phase Cardiovascular Cardiovascular exam: Present normal rhythm Abdominal Exam Abdominal exam: Present soft; Absent distention, tenderness, guarding, rebound or rigidity Extremities Exam Extremities exam: Absent edema Back Exam Back exam: Present CVA tenderness (R); Absent CVA tenderness (L) Neurological Exam Neurological exam: Present alert, oriented X3, CN II-XII intact and normal gait; Absent motor sensory deficit Skin Skin exam: Present warm and dry; Absent diaphoresis or erythema Medical Decision Making Medical Records Medical records reviewed: Yes I reviewed the patient's medical records. Rodríguez Inquiry Pt receiving controlled substance: No Rodríguez was queried for this patient: No Vital Signs: 05/07/24 07:56 05/07/24 08:00 05/07/24 08:30 Temperature 97.9 F Temperature Source Oral Pulse Rate 69 73 Pulse Rate [Left] 70 Respiratory Rate 14 Blood Pressure 120/92 H 104/77 L Blood Pressure [Right Arm] 144/91 H Blood Pressure Mean 102 86 Blood Pressure Mean [Right Arm] 108 Blood Pressure Source [Right Arm] Automatic Cuff Blood Pressure Position [Right Arm] Sitting 02 Sat by Pulse Oximetry 98 98 99 Oxygen Delivery Method Room Air 05/07/24 09:00 05/07/24 09:30 05/07/24 10:00 Temperature Temperature Source Pulse Rate 71 74 65 Pulse Rate [Left] Respiratory Rate Blood Pressure 109/74 L 104/73 L 95/71 L Blood Pressure [Right Arm] Blood Pressure Mean 87 83 77 Blood Pressure Mean [Right Arm] Blood Pressure Source [Right Arm] Blood Pressure Position [Right Arm] 02 Sat by Pulse Oximetry 99 100 99 Oxygen Delivery Method 05/07/24 10:30 Temperature Temperature Source Pulse Rate 59 L Pulse Rate [Left] Respiratory Rate Blood Pressure 97/69 L Blood Pressure [Right Arm] Blood Pressure Mean 76 Blood Pressure Mean [Right Arm] Blood Pressure Source [Right Arm] Blood Pressure Position [Right Arm] 02 Sat by Pulse Oximetry 100 Oxygen Delivery Method Lab Data Lab Results 05/07/24 08:00: WBC 7.6, RBC 4.70, Hgb 14.4, Hct 45.0, MCV 95.7, MCH 30.5, MCHC 31.9, RDW 13.4, Plt Count 336, MPV 9.2, Neut % (Auto) 51.5, Lymph % (Auto) 39.5, [place] % (Auto) 5.6, Eos % (Auto) 2.7, Baso % (Auto) 0.7, Neut # (Auto) 3.9, Lymph # (Auto) 3.0, [place] # (Auto) 0.4, Eos # (Auto) 0.2, Baso # (Auto) 0.1, Sodium 143, Potassium 3.7, Chloride 107, Carbon Dioxide 26, Anion Gap 13.7, BUN 6 L, Creatinine 0.60, Estimated Creat Clear 138, Estimated GFR 114, Est GFR ( Amer) 138, Glucose 103 H, Calcium 9.2, Total Bilirubin 0.4, AST 28, ALT 12, Alkaline Phosphatase 57, Total Protein 7.8, Albumin 4.4, Globulin 3.4 H, Albumin/Globulin Ratio 1.3, Lipase 90, HCG, Quant < 2 05/07/24 09:22: Urine Color Yellow, Urine Appearance Clear, Urine pH 5.5, Ur Specific [place] >= 1.030, Urine Protein Negative, Urine Glucose (UA) Negative, Urine Ketones Negative, Urine Blood 2+, Urine Nitrate Negative, Urine Bilirubin Negative, Urine Urobilinogen 0.2, Ur Leukocyte Esterase Negative, Urine RBC 10-20, Urine WBC 5-10, Ur Squamous Epith Cells 3-5, Urine Bacteria Trace, Urine Mucus Trace 05/07/24 08:00 05/07/24 08:00 Orders (Tests/Meds): ED MEDICATIONS Discontinued Medications Generic Name Dose Route Start Last Admin Trade Name [place] PRN Reason Stop Dose Admin Acetaminophen 1,000 mg 05/07/24 08:03 05/07/24 08:11 Acetaminophen 1,000mg/100ml Vial IV 05/07/24 08:04 1,000 mg ONCE ONE Administration Lactated Ringer's 1,000 mls @ 999 mls/hr 05/07/24 08:03 05/07/24 08:11 Lactated Ringer's 1000 Ml Bag IV 05/07/24 09:03 999 mls/hr .Q1H1M ONE Administration Ketorolac Tromethamine 15 mg 05/07/24 08:08 05/07/24 08:12 Ketorolac 30mg/Ml Vial IV 05/07/24 08:09 15 mg ONCE ONE Administration ORDERS Category Date Time Status CT abdomen pelvis wo con Stat Cat Scan 05/07/24 10:04 Completed POCUS Point of Care (ER Only) Stat Exams 05/07/24 08:08 Completed CBC w/Auto Diff [Complete Blood Count Auto Diff] Stat Lab 05/07/24 08:00 Completed CMP [Comprehensive Metabolic Panel] Stat Lab 05/07/24 08:00 Completed HCG,Quantitative Stat Lab 05/07/24 08:00 Completed Lipase Stat Lab 05/07/24 08:00 Completed UA [Urinalysis and Microscopic] Stat Lab 05/07/24 09:22 Completed Medical Decision Narrative: 34-year-old female history of previous appendiceal carcinoid tumor status postsurgical removal and in remission presenting with abdominal and flank pain. Patient states abdominal pain started yesterday, 05/06. Continued into today. Has been nauseated without vomiting. No changes in bowel. No fevers or chills. States that it is now in her back/right flank and radiates forward into her pelvis. Severe in intensity. Has had a history of nephrolithiasis, states this feels similar, but not entirely the same. Currently on her menstrual period. History was obtained via conversation with patient. On arrival, patient hemodynamically stable, alert, oriented x4, appropriate, GCS 15, moving all extremities spontaneously, pupils equal and reactive to light. Full physical exam performed and significant for well-appearing woman who appears to be mildly uncomfortable. Not in any acute distress. Abdomen is soft, nontender. Right flank is tender. She is nontachycardic, mildly hypertensive.. Differential includes UTI, cystitis, pyelonephritis, nephrolithiasis, septic stone, obstructive uropathy, among others. Patient was given Toradol, acetaminophen for symptomatic management and correction of underlying abnormalities. Workup independently interpreted and significant for no leukocytosis. Kidney function normal. Patient's LFTs normal. hCG negative, lipase negative. Urinalysis with blood. [id number] ultrasound performed, very mild hydronephrosis, no evidence of severe obstruction or large obstructing stone. Conversation was had with patient regarding utility of CT scan in the setting of normal ultrasound, still opting for CT scan to localize stone and observe size. Patient has 3 mm stone in the right ureter. Patient also has nondescript 17 mm liver mass. In the setting of having history of carcinoid tumor, this could potentially be recurrence. This was relayed to patient.. See radiology read for full review of final results. On reevaluation, patient resting comfortably, no acute complaints. This most likely represents acute nephrolithiasis without need for surgical intervention. Also incidental 17 mm hepatic cyst versus mass. Because patient at baseline without signs or symptoms of clinical decompensation, deemed appropriate for discharge. Results were relayed to patient who voiced understanding and were agreeable to outpatient management and follow up. I discussed my clinical impression with patient and answered all questions. At this time, the evidence for any other entities in the differential is insufficient to warrant any further testing or ED observation. This was explained as well. Advisory was given that persistent or worsening symptoms require further evaluation. I confirmed the understanding of this discussion. Collections Rep disclaimer Much of this encounter note is an electronic strategic development manager spoken language to printed text. Electronic strategic development manager of the spoken language may permit errors. Although I have reviewed the note, some errors may still exist. Procedures Limited Ultrasound Indication:: Limited RUQ ultrasound Indication: Abdominal/right flank pain Identified structures: -Gallbladder -Gallbladder wall -Common bile duct -Liver Findings: Sonographic Mathis sign: Absent Gallstones: Absent Sludge: Absent Pericholecystic fluid: Absent Maximal GB wall thickness (mm) (normal is </= 3mm): Normal Common bile duct width (mm) (normal is </= 6mm): Normal Gallbladder width (cm) (normal is < 4cm): Normal Gallbladder length (cm) (normal is < 10cm): Normal Impression: Normal gallbladder, no secondary signs of cholecystitis. Normal measurements. Normal echogenicity of liver. Images were saved to permanent archive The study was technically adequate CPT 78837-98 This study was performed by mn, and I personally interpreted all images/videos. Based on my clinical judgement, these images were adequate and did not necessitate further imaging. Views:: Limited renal ultrasound Indication: A focused ultrasound of the kidneys was performed to evaluate for hydronephrosis and nephrolithiasis. The ultrasound was performed with the following indications, as noted in the H&P: History of kidney stones, flank pain Identified structures: Right kidney Findings: Normal right kidney without evidence of hydronephrosis or nephrolithiasis Impression: Normal right kidney without evidence of hydronephrosis or lithiasis Images were saved to permanent archive The study was technically adequate CPT: 81430-68 This study was performed by mn, and I personally interpreted all images/videos. Based on my clinical judgement, these images were adequate and did not necessitate further imaging. Critical Care Critical Care Time Critical Care Time: No
[2024-05-07 08:23] LABS: Basophils # 0.1 K/mm3 (0-0.2); Basophils % 0.7 % (0.1-2.0); Chloride 107 mmol/L (98-107); Eosinophils # 0.2 K/mm3 (0.0-0.4); Eosinophils % 2.7 % (0.1-12.0); Hemoglobin 14.4 g/dL (12.2-16.2); Lymphocytes % 39.5 % (10-50); Mean Corpuscular HGB Conc 31.9 g/dL (31.8-35.4); Mean Corpuscular Hemoglobin 30.5 pg (27.0-31.2); Mean Corpuscular Volume 95.7 fl (81-99); Mean Platelet Volume 9.2 fl (7.4-10.4); Monocytes # 0.4 K/mm3 (0.1-1.0); Monocytes % 5.6 % (1.7-9.3); Neutrophils # 3.9 K/mm3 (1.8-7.8); Neutrophils % 51.5 % (37.0-80.0); Platelet Count 336 K/mm3 (142-424); Potassium 3.7 mmoL/L (3.5-5.1); Red Cell Distribution Width 13.4 % (11.5-17.5); Sodium 143 mmol/L (136-145); White Blood Count 7.6 K/mm3 (4.8-10.8)
[2024-05-07 08:26] LABS: Alanine Aminotransferase 12 U/L (12-78); Albumin Level 4.4 g/dl (3.5-5.0); Albumin/Globulin Ratio 1.3 (1.1-1.8); Alkaline Phosphatase 57 U/L (38-126); Anion Gap 13.7 mEq/L (5-15); Aspartate Amino Transferase 28 U/L (14-36); Bilirubin,Total 0.4 mg/dl (0.2-1.3); Blood Urea Nitrogen 6 mg/dl (7-17); Calcium 9.2 mg/dl (8.4-10.2); Carbon Dioxide 26 mmol/L (22.0-30.0); Creatinine Clearance Estimated 138 mL/min (50-200); Estimated Glomerular Filt Rate 114 ml/min (>60); GFR (African American) 138 ML/MIN (>60); Globulin 3.4 g/dL (1.3-3.2); Glucose 103 mg/dl (74-100); Lipase 90 U/L (23-300); Total Protein,Serum 7.8 g/dl (6.3-8.2)
[2024-05-07 08:43] LABS: HCG,Quantitative < 2 mIU/ml (0-5.42)
[2024-05-07 09:29] LABS: Microscopic, Urine URINE MICROSCOPIC (MICROSCOPIC)
--- NOTE | 2024-05-07 09:32 | PC.NURSE ---
I rounded on the pt and took her a warm blanket. pt reports her pain has decreased from a 9/10 to a 6/10. vss. no new complaints at this time.
[2024-05-07 09:42] LABS: Appearance,Urine CLEAR (Clear); Bilirubin,Urine Negative (Negative); Blood, Urine 2+ (Negative); Color,Urine YELLOW (Yellow); Glucose,Urine (UA) Negative (Negative); Ketones,Urine Negative (Negative); Leukocyte Esterase,Urine Negative (Negative); Nitrate,Urine Negative (Negative); PH,Urine 5.5 (5.0-8.5); Protein,Urine Negative (Negative); Specific Gravity, Urine >= 1.030 (1.005-1.030); Urobilinogen,Urine 0.2 EU/dl (0.2)
--- NOTE | 2024-05-07 10:04 | CT_ITS ---
FINAL REPORT CLINICAL HISTORY: hematuria, R flank pain, no hydro on US pain started this morning, states she had pain in her bladder a couple days COMPARISON: None FINDINGS: Axial CT images of the abdomen and pelvis were obtained without intravenous contrast. Coronal reformatted images were also obtained. This study was performed with techniques to keep radiation doses as low as reasonably achievable (ALARA). Individualized dose reduction techniques using automated exposure control or adjustment of mA and/or kV according to the patient's size were employed. Abdomen:The lung bases are clear. There are multiple small bilateral nonobstructing renal stones. The largest on the left measures 3 mm. There is mild right hydronephrosis and hydroureter secondary to a 3 mm distal right ureteral stone proximal to the UVJ. There is a small right renal cyst measuring 12 mm. There is a 17 mm low-attenuation mass in the posterior liver dome with a nonspecific appearance. This does not appear to be a simple cyst. The spleen and pancreas have an unremarkable, unenhanced appearance. There is a small umbilical hernia containing fat. Pelvis: No mass or abnormal fluid collection is identified. IMPRESSION: Mild right hydronephrosis and hydroureter secondary to a 3 mm distal right ureteral stone. Multiple small bilateral nonobstructing renal stones. Posterior liver dome mass as above. This could be further evaluated with liver mass protocol CT or liver MRI. Reviewed, Interpreted and Dictated by Eliceo Aragon III, MD Transcribed by Zahira Grajeda Authenticated and [facility]
[2024-05-07 10:39] LABS: Bacteria,Urine Trace /lpf; Mucus,Urine Trace /lpf
== END 2024-05-07 11:30 | disposition home or self-care (01) ==
PROVIDERS: Emergency Provider Emergency Medicine; PCP Family Medicine
DX: N13.0 Hydronephrosis with ureteropelvic junction obstruction (principal); N13.4 Hydroureter; N20.0 Calculus of kidney; R16.0 Hepatomegaly, not elsewhere classified; R10.31 Right lower quadrant pain; M54.59 Other low back pain; R11.0 Nausea; F17.210 Nicotine dependence, cigarettes, uncomplicated; Z86.012 Personal history of benign carcinoid tumor
CPT/HCPCS: 74176; 80053; 81001; 83690; 84702; 85025; 96361; 96374; 96375; 99285; J0131; J1885; J7120

== ENCOUNTER 2024-05-23 08:01 | Outpatient (CLI) | payer BC, SELFPAY ==
--- NOTE | 2024-05-23 | MR_ITS ---
FINAL REPORT TECHNIQUE: Multiplanar and multisequence imaging was obtained before and after the intravenous injection of gadolinium contrast. CLINICAL HISTORY: LIVER MASS COMPARISON: CT 05/07/2024 FINDINGS: The T2 hyperintense and T1 hypointense lesion in the posterior dome of the right lobe of the liver measuring 18 mm corresponds to the abnormality seen on recent CT scan. There are no additional liver lesions. The gallbladder is present. The spleen is normal in size and signal intensity. The adrenal glands and pancreas are without acute abnormality. There is no hydronephrosis or renal mass. The kidneys are unremarkable. Limited evaluation of the GI tract is without acute abnormality. There is no abdominal lymphadenopathy or ascites. Postcontrast images reveal nodular peripheral discontinuous enhancement of the liver lesion which is consistent with hemangioma. Remaining solid organs enhance normally.. IMPRESSION: Hepatic hemangioma, benign lesion. No follow-up needed. Reviewed, Interpreted and Dictated by Yolanda Puentes MD Transcribed by Zahira Grajeda Authenticated and [facility]
[2024-05-23] MEDS: 0.9 % SODIUM CHLORIDE 50 ML VIAL IV (09:16)
[2024-05-23] MEDS: GADOTERIDOL INJ 20ML SYRINGE 14 ML IV (09:16)
[2024-05-23] MEDS: SODIUM CHLORIDE 0.9% 10ML SYR (RAD ONLY) 10 ML IV (09:16)
== END 2024-05-23 23:59 | disposition home or self-care (01) ==
LOC: RAD 08:02
PROVIDERS: PCP Family Medicine; Visit Provider Family Medicine
DX: R16.0 Hepatomegaly, not elsewhere classified (principal)
CPT/HCPCS: 74183; A9576

== ENCOUNTER 2025-05-27 02:03 | Emergency (ER) | payer BC, SELFPAY ==
--- NOTE | 2025-05-27 02:05 | [facility].EDGENADL ---
Discharge Plan Disposition Patient Disposition: Home, Self-Care Prescriptions Prescriptions: New tamsulosin 0.4 mg capsule 0.4 mg PO DAILY Qty: 30 0RF oxycodone 5 mg tablet 5 mg PO Q8H PRN (Reason: pain) Qty: 12 0RF ondansetron HCl 4 mg tablet 4 mg PO Q8H PRN (Reason: nausea and vomiting) 5 Days Qty: 30 0RF No Action amoxicillin [amoxicillin] 500 mg tablet 500 mg PO BID 10 Days Qty: 20 0RF Referrals Follow up/Referrals: Kim Hayward [Primary Care Provider, Medical] - See instructions Chris Moreno MD [Staff Physician, Urology] - See instructions Activity Restrictions/Add. Instructions Additional Instructions/Restrictions: Please take the tamsulosin daily until stone passage. Please take Tylenol ibuprofen oxycodone and Zofran as needed for symptom management. Please follow-up with our urologist. Please return to the ER if you develop signs of a urinary tract infection as a infected stone requires more urgent treatment. Clinical Impressions Clinical Impression: Hydronephrosis with urinary obstruction due to ureteral calculus Print Language Print Language: Yi Discharge ED Provider: Patricio Davis General Adult HPI General Chief complaint: PAIN Stated complaint: lower back pain Time Seen by Provider: 05/27/25 02:05 History of Present Illness HPI narrative: 35-year-old female with history of prior kidney stones presents for right flank pain. She reports it is sharp, stabbing, severe. Has been ongoing for the last few hours. Reports it is consistent with prior kidney stones. Denies any fever, denies any dysuria. Reports nausea with no vomiting. Related Data Previous Rx's ?Medication ?Instructions ?Recorded amoxicillin 500 mg tablet 500 mg PO BID 10 days #20 tabs 07/23/23 ondansetron HCl 4 mg tablet 4 mg PO Q8H PRN nausea and 05/27/25 vomiting 5 days #30 tabs oxycodone 5 mg tablet 5 mg PO Q8H PRN pain #12 tabs 05/27/25 tamsulosin 0.4 mg capsule 0.4 mg PO DAILY #30 caps 05/27/25 Allergies Allergy/AdvReac Type Severity Reaction Status Date / Time azithromycin Allergy Mild Verified 05/07/24 08:02 Sulfa (Sulfonamide Allergy Mild Verified 05/07/24 08:02 Antibiotics) [facility] Disclaimer: The information contained in this section may have been updated after the patient was seen, as this information can be updated by other users. Social History , [employer]) Smoking Status: Current every day smoker tobacco type: cigarettes packs per day: 1 alcohol intake: never substance use type: denies use current occupational status: employed Travel in the last 8 weeks?: None household members: spouse housing: house current occupational exposures/hazards: No Have you lived/traveled outside [place] in past 30 days?: No Contact w/someone who lives/traveled outside [place] past 30 days?: No Exposure to someone with infectious disease in past 14 days?: No Do you have a fever (greater than 100.4 F or 38 C)?: No Have you tested positive for COVID-19?: No Exposed to someone with COVID-19 in past 14 days?: No Do you have a sore throat?: No Do you have a cough?: No Do you have any weakness?: No Do you have any diarrhea?: No Are you experiencing any unusual bleeding?: No Do you have any muscle aches/pain?: Yes Do you have any abdominal pain?: No Are you experiencing loss of taste or smell?: No Other Medical History Have you received the Flu Vaccine for this season: No Have you received the Pneumonia Vaccine: No ROS Obtained: Yes All systems reviewed & no additional complaints except as documented Physical Exam General General appearance: alert and in distress (Uncomfortable appearing secondary to pain) Head Head exam: atraumatic and normocephalic Eye Eye exam: Present normal appearance, PERRL and EOMI ENT ENT exam: Present normal oropharynx and normal external ear exam Neck Neck exam: Present normal inspection and full ROM Chest Chest inspection: Present normal inspection and symmetric chest wall rise; Absent tenderness Respiratory Respiratory exam: Present normal lung sounds bilaterally; Absent respiratory distress Cardiovascular Cardiovascular exam: Present regular rate and normal rhythm Abdominal Exam Abdominal exam: Present soft; Absent distention, tenderness or guarding Extremities Exam Extremities exam: Present normal inspection; Absent edema or joint swelling Back Exam Back exam: Present normal inspection, tenderness and CVA tenderness (R) Neurological Exam Neurological exam: Present alert and oriented X3; Absent motor sensory deficit Psychiatric Psychiatric exam: Present normal affect and normal mood Skin Skin exam: Present warm, dry and normal color Lymphatic Lymphatic Findings: no adenopathy Medical Decision Making Medical Records Medical records reviewed: Yes I reviewed the patient's medical records. Screening: Per USPSTF and CDC recommendations, given the prevalence of disease in our region, it is our hospital?s policy to screen for HIV and viral Hepatitis for all patients aged 18 and over and those with ongoing risk factors. Rodríguez Inquiry Pt receiving controlled substance: No Rodríguez was queried for this patient: No Vital Signs: 05/27/25 02:17 Temperature 98.4 F Temperature Source Oral Pulse Rate [Left] 81 Respiratory Rate 20 Blood Pressure [Right Arm] 146/88 H Blood Pressure Mean [Right Arm] 107 Blood Pressure Source [Right Arm] Automatic Cuff Blood Pressure Position [Right Arm] Sitting 02 Sat by Pulse Oximetry 100 Oxygen Delivery Method Room Air Lab Data Lab results reviewed: Yes I reviewed the patient's lab results. Lab Results 05/27/25 02:05: Urine Color Yellow, Urine Appearance Clear, Urine pH 7.0, Ur Specific [place] 1.015, Urine Protein 0, Urine Glucose (UA) 0, Urine Ketones 0, Urine Blood 3+ A, Urine Nitrate Negative, Urine Bilirubin Negative, Urine Urobilinogen 0.2, Ur Leukocyte Esterase Trace A, Urine RBC 10-20, Ur Squamous Epith Cells 3-5, Amorphous Sediment 1+, Urine Bacteria 2+ 05/27/25 02:15: WBC 9.4, RBC 4.72, Hgb 14.0, Hct 42.7, MCV 90.5, MCH 29.7, MCHC 32.8, RDW 12.6, Plt Count 347, MPV 11.3 H, Neut % (Auto) 62.4, Lymph % (Auto) 28.6, [place] % (Auto) 7.1, Eos % (Auto) 1.0, Baso % (Auto) 0.5, Neut # (Auto) 5.9, Lymph # (Auto) 2.7, [place] # (Auto) 0.7, Eos # (Auto) 0.1, Baso # (Auto) 0.1, Sodium 134 L, Potassium 3.5, Chloride 101, Carbon Dioxide 24, Anion Gap 12.5, BUN 8, Creatinine 0.80, Estimated Creat Clear 104, Estimated GFR 81, Est GFR ( Amer) 98, Glucose 147 H, Calcium 9.8, Total Bilirubin 0.7, AST 31, ALT 15, Alkaline Phosphatase 77, Total Protein 8.5 H, Albumin 5.0, Globulin 3.5 H, Albumin/Globulin Ratio 1.4, Lipase 197, Serum HCG, Qual Negative 05/27/25 02:17: HCV Ab RADHA w/Rflx PCR Qn Negative, HIV Ag/Ab Combo Qual Negative 05/27/25 02:15 05/27/25 02:15 Orders (Tests/Meds): ED MEDICATIONS Discontinued Medications Generic Name Dose Route Start Last Admin Trade Name Freq PRN Reason Stop Dose Admin Acetaminophen 1,000 mg 05/27/25 02:15 05/27/25 02:26 Acetaminophen 500mg Tab PO 05/27/25 02:16 1,000 mg ONCE ONE Administration Hydromorphone HCl 1 mg 05/27/25 02:15 05/27/25 02:26 Hydromorphone 2mg/Ml Syringe IV 05/27/25 02:16 1 mg ONCE ONE Administration Hydromorphone HCl 1 mg 05/27/25 03:18 05/27/25 03:29 Hydromorphone 2mg/Ml Syringe IV 05/27/25 03:19 1 mg ONCE ONE Administration Iopamidol 75 ml 05/27/25 03:04 05/27/25 03:10 Iopamidol-370 (76%);100ml Bottle IV 05/27/25 03:05 75 ml ONCE ONE Administration Ketorolac Tromethamine 30 mg 05/27/25 02:15 05/27/25 02:26 Ketorolac 30mg/Ml Vial IV 05/27/25 02:16 30 mg ONCE ONE Administration Ondansetron HCl 4 mg 05/27/25 02:15 05/27/25 02:25 Ondansetron 4mg/2ml Vial IV 05/27/25 02:16 4 mg ONCE ONE Administration Promethazine HCl 25 mg 05/27/25 03:32 05/27/25 03:34 Promethazine Hcl 25mg/Ml 1ml Vial IV 05/27/25 03:33 25 mg ONCE ONE Administration Sodium Chloride 10 ml 05/27/25 03:04 05/27/25 03:10 Sodium Chloride 0.9% 10ml Syr (Rad Only) IV 05/27/25 03:05 10 ml ONCE ONE Administration Sodium Chloride 25 ml 05/27/25 03:32 Sodium Chloride 0.9% 25ml Bag IV 05/27/25 03:33 ONCE ONE Tamsulosin HCl 0.4 mg 05/27/25 03:45 05/27/25 03:59 Tamsulosin 0.4mg Capsule PO 05/27/25 03:46 0.4 mg ONCE ONE Administration ORDERS Category Date Time Status CT abdomen pelvis w con Stat Cat Scan 05/27/25 02:15 Completed CBC w/Auto Diff [Complete Blood Count Auto Diff] Stat Lab 05/27/25 02:15 Completed CMP [Comprehensive Metabolic Panel] Stat Lab 05/27/25 02:15 Completed HCG Qualitative, Serum Stat Lab 05/27/25 02:15 Completed HIV Combo Stat Lab 05/27/25 02:17 Completed Hepatitis C Ab Qual. W/ RFX Stat Lab 05/27/25 02:17 Completed Lipase Stat Lab 05/27/25 02:15 Completed UA [Urinalysis and Microscopic] Stat Lab 05/27/25 02:05 Completed Urine Culture Stat Micro 05/27/25 02:05 Received Medical Decision Narrative: 35-year-old female with history of kidney stones in the past presents for acute onset severe right flank pain and tenderness with nausea and vomiting. History was obtained via interactive discussion with patient. On arrival, patient is [afebrile, hemodynamically stable, satting appropriately, alert, oriented x4, GCS 15], moving all extremities spontaneously. Full physical exam performed and significant for uncomfortable appearing patient with right flank tenderness Differential includes but is not limited to kidney stone, pyelonephritis, septic stone, bowel obstruction. Patient was given Tylenol Toradol Dilaudid and Zofran Phenergan for symptomatic management and correction of underlying abnormalities. Workup initiated including CBC CMP UA CT abdomen pelvis with IV contrast test. On re-evaluation, patient required additional medications for symptom control Laboratory workup independently interpreted by me and significant for urinalysis not consistent with UTI. No leukocytosis, normal renal. Imaging independently interpreted by me and significant for obstructing stone with right hydronephrosis, approximately 2 mm at the UVJ.. See radiology read for full review of final results. Transfer was considered, but deemed unnecessary due to no significant evidence of septic stone at this time.. Given patient history, exam and workup, patient's presentation most likely represents right sided obstructing ureteral stone. Interactive discussion was had with patient regarding her presentation. She was discharged in stable condition with meds including oxycodone and Zofran and tamsulosin. Procedures Risk/Benefits of Procedure(s) Were Explained: Yes Critical Care Critical Care Time Critical Care Time: No
--- OUTSIDE RECORDS SUMMARY | 2025-05-27 02:13 | XMS_ITS | Data Portability ---
Author Organization [facility] Address [address] [place] [address] Care Team Providers Care Service Attendant Name Role Phone KIM CHÁVEZ Primary Care Provider [phone] Assessment Encounter Date Assessment Date Assessment LastModified by Organization Details LastModified Time 03/19/2021 03/19/2021 SURGERY DATE: 03/19/2021 PREOPERATIVE DIAGNOSES: 1. Chronic tonsillitis. 2. Tonsil and adenoid hypertrophy. POSTOPERATIVE DIAGNOSES: 1. Chronic tonsillitis. 2. Tonsil and adenoid hypertrophy. PROCEDURE: Tonsillectomy and adenoidectomy. ANESTHESIA: General. ESTIMATED BLOOD LOSS: Minimal. COMPLICATIONS: None. FINDINGS: 4+ extremely cryptic tonsils along with adenoid hypertrophy causing 20% blockage of the choana. SURGEON: Hamlet Harvey MD INDICATIONS: The patient is a 31-year-old lady who has had a long-time history of chronic tonsillitis along with enlarged tonsils causing trouble with swallowing and breathing. OPERATIVE NOTE: After informed consent was obtained for the patient, she was brought back to the operating room. The proper operative site were identified and confirmed by the OR staff. The patient was placed on general anesthesia and intubated as per the anesthesia team. The head of the bed was turned 90 degrees and she was positioned, prepped and draped in the usual sterile fashion. Oral McIvor was inserted and the patient was placed in suspension. A total of 6 mL of 1% lidocaine with epinephrine was injected along both tonsillar capsules. Attention was first turned toward the right tonsil, which was grasped with an Allis forceps. Radiofrequency coblation was then used to takedown the tonsil along the tonsil plane. Once the right tonsil bed was hemostatic, attention was turned towards the left tonsil, which was removed in an identical fashion. Once both tonsil beds were hemostatic, attention was turned toward the adenoids. The red rubber catheters were inserted in each side of the nose to retract the soft palate. Radiofrequency coblation was then used to take down the adenoid tissue until the choanae widely patent. Red rubber catheters were then removed and the oral cavity was irrigated and suctioned dry. Hemostatic pause was performed and there was no evidence of any bleeding. Stomach was suctioned dry. The patient was let out of suspension and the oral McIvor was removed. She was turned over to anesthesia for extubation and awakening. She tolerated the procedure very well and was brought back to postop recovery in stable condition. [email or web address] Not available 03/20/2021 03:40:54 Plan of Treatment Reminders Order Date Submit Date Provider Last Modified By Organization Details Last Modified Time Details Appointments None recorded. Lab surgical pathology study 2023 024 [facility], [address] [place] [address], [id number], 10:16:31 Referral None recorded. Procedures None recorded. Surgeries None recorded. Imaging None recorded. Medication Orders clotrimazo le 10 mg levi 2020 [id number] [address] [place], [address], 12:18:50 Patient TargetsNo targets recorded. Patient Instructions Encounter Date Encounter Id Patient Instructions Last Modified By Organization Details Last Modified Time 03/11/2021 [id number] 1. T&A - Full ri sks, complications, and benefits of operative versus non-operative intervention have been thoroughly discussed. Understanding was expressed, informed consent given, and we will proceed with the discussed operative treatment plan. There were no questions for me at the end of the office visit. 2. Follow up visit postoperatively or sooner if concerns arise. [email or web address] Not available 03/11/2021 13:59:56 huge cryptic ton sils and recurrent tonsillitis; has been on over seven rounds of antibiotics; tonsils so big they are affecting her swallowing and breathing; discussed option of tonsillectomy and adenoidectomy along with the risks and benefits and she woulk like to proceed; recently had wisdom teeth removed and lortab did not help with the pain so may try percocet for her post-op pain this time [email or web address] Not available 03/11/2021 14:11:53 04/03/2021 [id number] 1. RX: Clotrimaz ole levi; take one 4 times a day x 21 days. 2. Status post adenotonsillectomy - tonsillar fossa healing nicely. 3. Follow up as needed. [email or web address] Not available 04/03/2021 11:55:33 T&A on 03/19/21; overall doing ok but now with thrush; will do clotrimazole for three weeks and expect full recovery; will contact us if more trouble [email or web address] Not available 04/03/2021 12:01:46 Reason for Referral None Reported. Results Created Date Observation Date Name Description Value Unit Range Abnormal Flag Note LastModifiedBy Organization Detail LastModifiedTime 03/17/20 21 03/18/2021 SARS CoV 2 RNA (COVI D-19) , QL, legal officer-P CR, respi rator y speci men sars cov2 result NEGATI VE normal Not Available [facility] [address], [place], [address], 03/18/2021 08:40:04 09/28/20 24 09/28/2024 SURGI LAWANDA surgical SEE BELOW Delia topat holog y Repor t NAME: MARGARET BRYANT HAFSA PATH: [id number] PROCE DURE DATE: 09/28 SIGNO UT DATE: 10/02 Copy to: Diagn osis: Right Mid Back - INTRA DERMA L MELAN OCYTI C NEVUS SOURC E OF SPECI MEN: DAK SKIN TAG 2 SLIDE S, R MID BACK CLINI LAWANDA INFOR MATIO N: R/O: NEVUS VS IRRIT ATED TAG. Gross Descr iptio n: The speci men consi sted of a aparicio fragm ent which was bisec allen and measu red 7 x 5 x 2 mm. All submi tted in one casse tte. Micro scopi c Descr iptio n: Nests of derma l melan ocyte s exhib it symme try, circu mscri ption and matur ation with desce nt. MD Charlee DA SILVA Out Date: 10/02 10:16 1 Not Available [facility] [address] [place], [address], 10/02/2024 10:16:31 Result Notes None recorded. Problems No Known Problems Procedures Surgical History Date Name Laterality Status Provider Name and Address Organization Details Recorded Time 09/28/20 24 DAK - Shave removal trunk/arm/leg completed Yaniv Meza [facility] 09/28/2024 10:35:10 01/06/20 19 Appendectomy completed [facility] 03/11/2021 13:27:27 Imaging Results None recorded. Procedure Notes None recorded. Medical Equipment None Reported. Allergies Allergen ID Allergen Name Allergen Category Reaction Reaction Severity Criticality Documentation Date Start Date Code Code System Note Provider Name and Address Organization Details Recorded Time 554375 Substance with sulfonami de structure and antibacte rial mechanism of action (substanc e) medicatio n Not available Not available Not available 03/11/2021 71855 8003 SNOMED [facility] 13:25:41 788603 azithromy lizabeth medicatio n Not available Not available Not available 03/11/2021 88123 RxNorm [facility] 13:26:28 Medications Name Sig Start Date Stop Date Status Note LastModified by Organization Details LastModified Time Compound Tetracaine Lollipops 0.5% USE FOR 1 MINUTE EVERY 1 HOUR NEEDED FOR PAIN 2020 active Not Available Not Available Not Avai lable cyclobenzapr ine 10 mg tablet TAKE 1 TABLET BY MOUTH EVERY EVENING NEEDED FOR PAIN active Not Available Not Available No t Available amoxicillin 500 mg capsule TAKE 1 CAPSULE BY MOUTH THREE TIMES A DAY FOR 10 DAYS active Not Available Not Available No t Available clotrimazole 10 mg levi Take 1 tablet 4 times a day by oral route for 21 days. 2020 active Not Available Not Available Not Avai lable ibuprofen 800 mg tablet 03/11 completed Not Available Not Available Not Available fluconazole 150 mg tablet TAKE 1 TABLET EVERY DAY active Not Available Not Available No t Available ondansetron HCl 4 mg tablet active Not Available Not Available Not Available ciprofloxaci n 500 mg tablet TAKE 1 TABLET BY MOUTH TWICE A DAY active Not Available Not Available No t Available tramadol 50 mg tablet active Not Available Not Available No t Available hydrocodone 7.5 mg-acetamino phen 325 mg tablet 03/11 completed Not Available Not Available Not Available montelukast 10 mg tablet active Not Available Not Available Not Available prednisolone 15 mg/5 mL oral solution TAKE 15ML PO Q DAY ON POST OP DAY #1, #3, #5, AND #7 active Not Available Not Available No t Available oxycodone-ac etaminophen 7.5 mg-325 mg tablet Take 1 tablet every 3-4 hours by oral route as needed for 5 days. active Not Available Not Available No t Available brompheniram ine-pseudoep hedrine-DM 2 mg-30 mg-10 mg/5 mL oral syrup 03/11 completed Not Available Not Available Not Available ondansetron 4 mg disintegrati ng tablet TAKE 1 TAB EVERY 8 HOURS NEEDED FOR NAUSEA active Not Available Not Available No t Available doxycycline hyclate 100 mg tablet 03/11 completed Not Available Not Available Not Available hydrocodone 7.5 mg-acetamino phen 325 mg/15 mL oral solution TAKE 10-15ML PO Q 4 HOURS PRN PAIN 2020 active Not Available Not Available Not Avai lable nitrofuranto in monohydrate/ macrocrystal s 100 mg capsule TAKE 1 CAPSULE BY MOUTH TWICE A DAY active Not Available Not Available No t Available Vitals Date Recorded Body weight Body mass index (BMI) Body height Body temperature Oxygen saturation Oxygen saturation in Arterial blood by Pulse oximetry Heart rate Systolic And Diastolic Provider Name and Address Organization Details Last Updated DateTime 1 66059.9 9 g 22.4 kg/m2 170.18 cm 97.3 [degF] 98 % 98 % 73 /min 98/72 mm[Hg] [facility] 13:31:00 Date Recorded Body height Body temperature Heart rate Body mass index (BMI) Body weight Systolic And Diastolic Provider Name and Address Organization Details Last Updated DateTime 170.18 cm 97.5 [degF] 72 /min 21.5 kg/m2 04671.1 5 g 94/65 mm[Hg] Connie Weeks [facility] 11:02:38 Social History Question Answer Notes LastModified by Organizat ion Details LastModified Time Tobacco Smoking Status Current Some Day Smoker cigars Estelle Schulz [facility] 03/11/2021 13:23:27 What Was The Date Of Your Most Recent Tobacco Screening? 09/28/2024 [email or web address] Information not available 09/28/2024 How Many Years Have You Smoked Tobacco? 10 Information not available 03/11/2021 Sex: Unknown Functional Status Question Answer Note LastModified by Organization D etails LastModified Time What is your level of alcohol consumption? None Information not available 03/11/2021 Mental Status None recorded. Family History Relationship Description Onset Age of this Age Resolved Age Notes LastModified by Organization Details LastModified Time Mother Hypertensive disorder [email or web address] Not available 03/11 13:23:46 Mother Diabetes mellitus [email or web address] Not available 03/11 13:23:56 Maternal Aunt Malignant melanoma [email or web address] Not available 2023 10:06:34 Medical History Condition Response Kidney Stones N Hyperthyroidism N Heart Arrhythmia N Emphysema N Esophagus/swallowing troubles N Glaucoma N Depression N Hypothyroidism N Lung Disease N Anesthesia Complications N Anxiety Disorder N Arthritis N Hearing Loss N Acid Reflux (GERD) N Cancer N Stroke N Hoarseness N Alcohol Overuse/Alcohol Abuse N High Cholesterol N Snoring problems N Liver Disease N Headaches N Kidney Disease N Allergies/Hayfever N Heart Problems N Mental handicap N Ear or Hearing Problems N Gallbladder Disease N Migraines N Thyroid Problems N Goiter N Anemia N Immune System Disorder N Chest Pain N Stomach trouble N Ulcers N Heart Attack ([place]) N Diabetes N Rheumatic Fever N Bleeding Disorder N Tuberculosis N AIDS/HIV N Hyperlipidemia N Asthma N Epilepsy/Seizures N Sleep Disorder N Hepatitis N Heart Disease N Hypertension N Gynecological HistoryNo gynecological history recorded. Obstetrics History GPAL:G 0 P 0 0 0 0 Past Encounters Encounter ID Performer Location Encounter Start Date Encounter Closed Date Diagnosis/Indication Diagnosis SNOMED-CT Code Diagnosis ICD10 Code Diagnosis Note [id number] HAMLET HARVEY MD ID [facility]NT [address] [place] [address] 03/11/2021 13:15:59 03/11/2021 13:59:54 Chronic tonsillitis 23950682 J35.01 Hypertroph y of tonsils 19873523 J35.1 Cryptic tonsil 305840854 J35.8 [id number] HAMLET HARVEY MD SURGERY SCHEDULE [address] [place] [address] 03/19/2021 11:00:39 03/19/2021 11:01:05 [id number] HAMLET HARVEY MD ID ENT [address] [facility] [place] [address] 04/03/2021 10:58:48 04/03/2021 12:00:07 Chronic tonsillitis 70144439 J35.01 - Status post adenotonsi llectomy - 03/19/2021 Hypertroph y of tonsils 58964783 J35.1 - Status post adenotonsi llectomy - 03/19/2021 Cryptic tonsil 585124560 J35.8 Candidiasis of mouth 797 74166 B37.0 - Clotrimazo le levi prescribed - 04/03/2021 [id number] MARIA LUISA ZUÑIGA MD [facility] [address] [place] [address] 09/28/2024 09:10:09 09/28/2024 11:01:31 Solar lentigo 05016759 L81.4 - Benign appearing, reassuranc e given - Counseled on importance of daily sun protection and self skin exams/barrett toring for ugly duckling lesions Multiple b enign melanocytic nevi 226254720 D22.5 - Benign appearing, reassuranc e given - Counseled on importance of daily sun protection and self skin exams/barrett toring for ugly duckling lesions Senile angioma 5697899 I 78.1 - Benign appearing, reassuranc e given Seborrheic keratosis 394 933641 L82.1 - Benign appearing, reassuranc e given Neoplasm o f uncertain behavior of skin 89819792 D48.5 R mid back R/o: melanocyti c intraderma nevus vs tag, irritated - Bx performed today (see proc note(s) & surgical path order below for further detail, including location(s ) & DDX(s))- Wound care instructio ns reviewed/h andout provided- Will call with results & arrange tx as indicated at that time History of atypical nevus 6103330888 101 Z86.018 Today pt reports previously had MM on back at different derm office in 2010 (pt prev reported (Dr. Zuñiga's last note in [facility] for pt 07/2023) as atypia on back excised & that if they hadn't gotten it, it would've turned into melanoma) Health Concerns Section Related Observation LastModified by Organization Detai ls LastModified Time None Recorded Concern Status LastModified by Organization Details LastModified Time None Recorded Advance Directives Directive None Recorded Payers Insurance Date Sequence Insurance Name Policy Number Policy Kong Covered Member ID Kong Member ID Guarantor Name 10/02/2024 1 BCBS-ID: EMILY BCBS OF [place] [id number] Erica Bryant [id number] Erica Johnsoner Notes Date Note Type Note Provider Name and Address Organization Details Recorded Time 03/11/2021 text/html Erica is a 31 year old female who comes in today for consultation at the request of Dr. Kim Chávez for an evaluation of recurrent tonsillitis. Erica says that in the last 8 months she has been treated with 7 rounds of antibiotics for her tonsils. Her last antibiotic was 3-4 weeks ago. She has been treated with Amoxicillin and Doxycycline. She complains that her tonsils have stayed enlarged the entire time. She reports that she is snoring at night. She is having a hard time sleeping due to trouble breathing. With her tonsils being enlarged, she is having a hard time swallowing solids and liquids. HAMLET HARVEY MD [facility] [place], [address], [facility] 03/11/2021 14:12:25 04/03/2021 text/html Erica is a 31 year old who returns today for a post operative follow up of tonsillectomy and adenoidectomy on 03/19/2021. She reports she has been doing fairly well since the surgery. She's back to eating regular food now and is not having any trouble swallowing or eating. She reports she does have some white coating on her tongue and her sense of taste is altered. She still has some ear pain. HAMLET HARVEY MD [address] [place] [address], [address], [facility] 04/03/2021 12:02:13 09/28/2024 text/html Here for a full body skin examination - last skin check: 07/2023- spots of concern today: skin tag on back- previously had MM on back at different derm office in 2010 (pt prev reported (Dr. Zuñiga's last note in [facility] for pt 07/2023) as atypia on back excised & that if they hadn't gotten it, it would've turned into melanoma) MARIA LUISA ZUÑIGA MD [address] [place] [address], [address], [facility] 09/28/2024 12:44:27 OBGyn Episode No OBEpisode recorded.
--- OUTSIDE RECORDS SUMMARY | 2025-05-27 02:13 | XMS_ITS | Encounter Summary ---
Author Organization [employer] ([place], [place], [place], [place]) Address [address] [place] [address] Care Team Providers Care Missile Tracking Technician Name Role Phone Unavailable Primary Care Provider Unavailabl e Reason for Referral * Mammography (Routine) - Closed Specialty Diagnoses / Procedures Referred By Delfino flores Referred To Contact Diagnoses Mastodynia Procedures MM digital mammo diagnostic with norman bilateral Alysa Pearson NP [address] [address] Phone: tel: fax: Referral ID Status Reason Start Date Expiration Date Visits Re quested Visits Authorized [id number] Closed 03/23/2023 09/19/2023 1 1 Encounter Details Date Type Department Care Team (Late st Contact Info) Description 03/23/2023 Outside Orders [facility] Central Scheduling [address] [place] [address] Alysa Pearson NP [address] [place] [address] Mastodynia (Primary Dx) Social History Tobacco Use Types Packs/Day Years Used Date Smoking Tobacco: Never Assessed Comments Unknown Sex and Gender Information Value Date Recorded Sex Assigned at Not on file Legal Sex Female 6:44 PM CDT Gender Identity Not on file Sexual Orientation Not on file documented as of this encounter Plan of Treatment Not on file documented as of this encounter Results * MM digital mammo diagnostic with norman bilateral (04/20/2023 2:30 PM EDT) Anatomical Region Laterality Modality Breast Bilateral Mammography 04/20/2023 2:33 PM EDT Impressions 04/20/2023 2:40 PM EDT FINAL IMPRESSION: ACR BI-RADS 1: Negative. RECOMMENDATIONS: Screening mammography at age 39. The results and recommendations were discussed with the patient on the day of the appointment. In addition, a written report in lay terms was given to the patient. Density notification was included for patients with pattern 3 or 4 breast tissue. At our facility, a tanana marker is positioned over a visible skin lesion and a linear marker is used to indicate a scar. A triangular marker is placed on a palpable finding. Narrative 04/20/2023 2:40 PM EDT PROCEDURES: Bilateral diagnostic mammogram with digital tomosynthesis (DBT) REASON FOR EXAM: Bilateral diffuse mastodynia FAMILY HISTORY: There is weak family history of breast cancer COMPARISON STUDIES: This represents the patient's first mammogram. FINDINGS: Today's mammogram consisted of bilateral craniocaudad and mediolateral oblique views obtained in 2D and Digital Breast Tomosynthesis (DBT) modes. Also, C-views were reconstructed from the 3D acquisition. The breast tissue has pattern b (scattered fibroglandular densities). There is no evidence of dominant mass, architectural distortion, or suspicious calcifications. Mammographic exam was reviewed with the benefit of computed aided detection. us Alysa Pearson NP IMG MAMMOGRAPHY ORDERABLES Fin al Result documented in this encounter Visit Diagnoses Diagnosis Mastodynia- Primary Mastodynia documented in this encounter
--- OUTSIDE RECORDS SUMMARY | 2025-05-27 02:13 | XMS_ITS | Clinical Summary ---
Author Organization [facility] Address [address] [place] [address] Care Team Providers Care Pipe Washer Name Role Phone Kim Hayward DO Primary Care Provider [phone] Allergies Active Allergy Reactions Criticality Noted Date Comments Sulfa Antibiotics Rash Low 09/13/2016 Azithromycin Rash Low 09/13/2016 Medications amoxicillin-clav ulanate (AUGMENTIN) 875-125 MG per tabletIndication s:Acute pansinusitis, recurrence not specified Take 1 tablet by mouth 2 (Two) Times a Day. 20 tablet 09/13/2016 Active Active Problems No known active problems Family History Medical History Relation Name Comments No Known Problems Father No Known Problems Mother Relation Name Status Comments Father Alive Mother Alive Social History Tobacco Use Types Packs/Day Years Used Date Smoking Tobacco: Former Cigarettes 0.5 4 Abuse Screen Answer Date Recorded Unsafe at Home or Work/School Not on file Feels Threatened by Someone? Not on file 09/2023 Does Anyone Keep You from Co ntacting Others or Doint Things Outside the Home? Not on file 08/17/2023 Physical Sign of Abuse Present Not on file 1 Housing Stability Answer Date Recorded Current Living Arrangements Not on file 08/07 Potentially Unsafe Housing Conditions Not on rosi e 08/17/2023 Family and Community Support Answer Abdon e Recorded Help with Day-to-Day Activities Not on file 08/17/2023 Lonely or Isolated Not on file 08/17/2023 Employment Answer Date Recorded Do you want help finding or keeping work or a jerry b? Not on file 08/17/2023 Disabilities Answer Date Recorded Concentrating, Remembering, or Making Decisions Difficulty Not on file 08/17/2023 Doing Errands Independently Difficulty Not on fi le 08/17/2023 Education Answer Date Recorded Help with school or training? Not on file Preferred Language Not on file 08/17/2023 Comments Unknown Sex and Gender Information Value Date Recorded Sex Assigned at Not on file Legal Sex Female 2:48 PM EST Gender Identity Not on file Sexual Orientation Not on file Last Filed Vital Signs Vital Sign Reading Time Taken Comments Blood Pressure - - Pulse 77 09/13/2016 2:56 PM EST Temperature 36.9 C (98.4 F) 09/13/2016 2:56 PM EST Respiratory Rate 18 09/13/2016 2:56 PM EST Oxygen Saturation 96% 09/13/2016 2:56 PM EST Inhaled Oxygen Concentration - - Weight 69.4 kg (153 lb) 09/13/2016 2:56 PM EST Height 172.7 cm (5' 8 ) 09/13/2016 2:56 PM EST Body Mass Index 23.26 09/13/2016 2:56 PM EST Plan of Treatment Health Maintenance Due Date Last Done Comments ANNUAL PHYSICAL 1989 Annual Gynecologic Pelvic an d Breast Exam 1989 HEPATITIS C SCREENING 1989 TDAP/TD VACCINES (1 - Tdap) 01/21/2008 COVID-19 Vaccine (2023-2 5 season) 2024 INFLUENZA VACCINE 08/07/2025 Pneumococcal Vaccine 0-49 Aged Out No longer eligible based on patient's age to complete this topic Care Teams Pipe Washer Relationship Specialty Start Date End Date Kim Hayward DO [address] [place] [address] PCP - General Family Medicine 09/13/16
--- OUTSIDE RECORDS SUMMARY | 2025-05-27 02:13 | XMS_ITS | Referral Summary ---
Author Organization [employer] ([place], [place], [place], [place]) Address [address] [place] [address] Care Team Providers Care Sponge Hooker Name Role Phone Unavailable Primary Care Provider Unavailabl e Social History Tobacco Use Types Packs/Day Years Used Date Smoking Tobacco: Never Assessed Food Insecurity Answer Date Recorded Food run out past 12 months Not on file 11/07 Food did not last past 12 months Not on file 11/25/2023 Employment Answer Date Recorded Help finding and keeping a job Not on file 0 11/25/2023 Family and Community Support Answer Abdon e Recorded Help with Day to Day Activities Not on file 11/25/2023 Feeling Lonely or Isolated Not on file 11/25 Educational Attainment Answer Date Sean rded Speak language other than Greenlandic at home Not on file 11/25/2023 Want help with school or training Not on file 11/25/2023 Substance Use Answer Date Recorded Used prescription meds for non-medical reasons N ot on file 11/25/2023 Used illegal drugs past 12 months Not on file 11/25/2023 Comments Unknown Sex and Gender Information Value Date Recorded Sex Assigned at Not on file Legal Sex Female 6:44 PM CDT Gender Identity Not on file Sexual Orientation Not on file Plan of Treatment Not [place] [address] [place] [phone] BLUE CROSS/BLUE SHIELD
--- OUTSIDE RECORDS SUMMARY | 2025-05-27 02:13 | XMS_ITS | Clinical Summary ---
Author Organization Healthcare Address [address] [place] [address] Care Team Providers Care Marketing Community Liaison Name Role Phone Kim Hayward Primary Care Provider [phone] Allergies Active Allergy Reactions Criticality Noted Date Comments Azithromycin Other - please docum ent in the comment field,Rash Low 09/13/2016 Abdominal pain Sulfa Drugs Other - please docum ent in the comment field,Rash,Swelling High 09/13/2016 Sulfa (Sulfonamide Antibiotics) Group - difficulty breathing Immunizations Immunization Administration Dates Next Due Hep A, Unspecified 09/15/2018 Hep B, adult 01/10/2001,07/06/2000,05/25/2000 Influenza, Unspecified 07/27/2020,07/18/2019, Influenza, injectable, quadr ivalent, preservative free 08/08/2023,09/02/2022,08/18/2021 Influenza, seasonal, injecta ble, preservative free 08/23/2024 MMR 05/25/2000,05/12/1990 Pfizer-BioNTech COVID-19 Vac cine (Purple Cap) 12+ 06/16/2021 07/07/2021 Tdap 01/08/2016 Varicella 12/08/2008 Social History Tobacco Use Types Packs/Day Years Used Date Smoking Tobacco: Former Comments Unknown Sex and Gender Information Value Date Recorded Sex Assigned at Not on file Legal Sex Female 7:28 PM EDT Gender Identity Not on file Sexual Orientation Not on file Last Filed Vital Signs Vital Sign Reading Time Taken Comments Blood Pressure 117/77 09/05/2024 8:41 AM EDT Pulse 82 09/05/2024 8:41 AM EDT Temperature 36.6 C (97.8 F) 04/25/2020 3:10 PM EDT Respiratory Rate 20 04/25/2020 3:10 PM EDT Oxygen Saturation 98% 09/05/2024 8:41 AM EDT Inhaled Oxygen Concentration - - Weight 66 kg (145 lb 8.1 oz) 04/25/2020 3:10 PM EDT Height 172.7 cm (5' 7.99 ) 04/25/2020 3:10 PM ED T Body Mass Index 22.13 04/25/2020 3:10 PM EDT Plan of Treatment Health Maintenance Due Date Last Done Comments [facility]-Depression Screening 1989 [facility]-HIV Screening 1989 [facility]-Hepatitis C Screening 1989 [facility]-/Child/Adol SDOH Screenings 1989 [facility]- SDOH Screenings 2007 [facility]-Adult SDOH Screenings 2007 [facility]-Pap Smear 2010 [facility]-Cervical Cancer Screening 2019 [facility]-HPV/Cotest 2019 [id number] Vaccine ( season) 2024 07/17/2021, 06/16/2021 [facility]-Influenza Vaccine (#1) 07/08/202508/23, 08/08/2023, 09/02/2022, Additional history exists [facility]-DTaP,Tdap,and Td Vaccines (2 - Td or Tdap) 01/07/2026 01/08/2016 [facility]-Zoster Vaccines (1 of 2) 2039 02/05/2009, 12/08/2008 [facility]-Hepatitis B Vaccines Completed 001, 07/06/2000, 05/25/2000 [facility]-Varicella Vaccines Completed 02/05/2009, 2008 HPV Vaccines Completed 10/23/2009, 06/08, 02/07/2009 [facility]-Hepatitis A Vaccines Aged Out 09/15/2018 No longer eligible based on patient's age to complete this topic [facility]-HIB Vaccines Aged Out No longer e ligible based on patient's age to complete this topic [facility]-IPV Vaccines Aged Out No longer e ligible based on patient's age to complete this topic [facility]-Pneumococcal Vaccine: Pediatrics (0 to 5 Years) and At-Risk Patients (6 to 49 Years) Aged Out No longer eligible based on patient's age to complete this topic [facility]-Rotavirus Vaccines Aged Out No lo nger eligible based on patient's age to complete this topic Insurance EMILY Care Teams Marketing Community Liaison Relationship Specialty Start Date End Date Kim Hayward DO [facility] Johnathan Ortiz, [place] [id number] PCP - General 06/20/21
--- OUTSIDE RECORDS SUMMARY | 2025-05-27 02:13 | XMS_ITS | Clinical Summary ---
Author Organization [employer] ([place], [place], [place], [place]) Address [address] [place] [address] Care Team Providers Care Human Resources Professional Name Role Phone Unavailable Primary Care Provider [...] Date Sean rded Speak language other than Estonian at home Not on file 11/25/2023 Want [...] Orientation Not on file Plan of Treatment Health Maintenance Due Date Last Done Comments Depression Screening (12+) 2001 Tobacco Cessation Counseling and Screening (12+) 2001 HIV Screening 01/21/2004 Hepatitis C Screening 2007 Pap Smear 2010 COVID-19 VACCINE (3 - 2023-2 5 season) 2024 07/17/2021, 06/16/2021 Influenza Vaccine (#1) 2025 DTAP/TDAP/TD VACCINES (2 - T d or Tdap) 01/07/2026 01/08/2016 Pneumococcal Vaccine: 0-49 Years Aged Out No longer eligible b ased on patient's age to complete this topic Insurance BLUE CROSS/BLUE SHIELD
--- NOTE | 2025-05-27 02:15 | CT_ITS ---
PROCEDURE INFORMATION: Exam: CT Abdomen And Pelvis With Contrast Exam date and time: 05/27/2025 3:04 AM Age: 35 years old Clinical indication: Abdominal pain; Flank; Right; Additional info: R flank pain TECHNIQUE: Imaging protocol: Computed tomography of the abdomen and pelvis with contrast. Radiation optimization: All CT scans at this facility use at least one of these dose optimization techniques: automated exposure control; mA and/or kV adjustment per patient size (includes targeted exams where dose is matched to clinical indication); or iterative reconstruction. Contrast material: ISOVUE; Contrast volume: 75 ml; Contrast route: IV; COMPARISON: MR ABDOMEN WO/W CON 05/23/2024 8:26 AM FINDINGS: Liver: 17 mm previously characterized hemangioma within the posterior right hepatic lobe. Gallbladder and biliary ducts: Normal. Pancreas: Normal. Spleen: Normal. Adrenal glands: Normal. No mass. Kidneys and ureters: Bilateral nephrolithiasis. Right hydroureteronephrosis, with obstructive 2 mm calculus in the distal right ureter (series 3, image 110). Stomach and bowel: Colonic diverticulosis. Appendix: No evidence of appendicitis. Intraperitoneal space: Unremarkable. No free air. No significant fluid collection. Vasculature: Phleboliths within the pelvis. Lymph nodes: Unremarkable. No enlarged lymph nodes. Urinary bladder: Unremarkable as visualized. Reproductive: Unremarkable as visualized. Bones/joints: No acute abnormality. Soft tissues: Small fat containing umbilical hernia. IMPRESSION: Right hydroureteronephrosis, with obstructive 2 mm calculus in the distal right ureter (series 3, image 110).
[2025-05-27 02:17] VITALS: BP 146/88; PULSE 81; RESP 20; TEMP 36.9; O2SAT 100; BMI 23.5
[2025-05-27] MEDS: ONDANSETRON 4MG/2ML VIAL 4 MG IV (02:25)
[2025-05-27 02:26] LABS: White Blood Count 9.4 K/mm3 (4.8-10.8)
[2025-05-27] MEDS: HYDROMORPHONE 2MG/ML SYRINGE 1 MG IV ×2 (02:26→03:29)
[2025-05-27] MEDS: ACETAMINOPHEN 500MG TAB 1000 MG PO (02:26)
[2025-05-27] MEDS: KETOROLAC 30MG/ML VIAL 30 MG IV (02:26)
[2025-05-27 02:27] LABS: Hematocrit 42.7 % (37.0-47.0); Hemoglobin 14.0 g/dL (12.2-16.2); Immature Granulocytes % 0.4 %; Mean Corpuscular HGB Conc 32.8 g/dL (31.8-35.4); Mean Corpuscular Hemoglobin 29.7 pg (27.0-31.2); Mean Corpuscular Volume 90.5 fl (81-99); Nucleated Red Blood Cells % 0 %; Platelet Count 347 K/mm3 (142-424); Red Blood Count 4.72 M/mm3 (4.20-5.40); Red Cell Distribution Width-SD 41.5 fL
[2025-05-27 02:33] LABS: Microscopic, Urine URINE MICROSCOPIC (MICROSCOPIC)
[2025-05-27 02:36] LABS: HCG Qualitative, Serum Negative (Negative)
[2025-05-27 02:40] LABS: Potassium 3.5 mmoL/L (3.5-5.1); Sodium 134 mmol/L (136-145)
[2025-05-27 02:41] LABS: Alanine Aminotransferase 15 U/L (12-78); Albumin Level 5.0 g/dl (3.5-5.0); Albumin/Globulin Ratio 1.4 (1.1-1.8); Anion Gap 12.5 mEq/L (5-15); Aspartate Amino Transferase 31 U/L (14-36); Bilirubin,Total 0.7 mg/dl (0.2-1.3); Blood Urea Nitrogen 8 mg/dl (7-17); Calcium 9.8 mg/dl (8.4-10.2); Carbon Dioxide 24 mmol/L (22.0-30.0); Chloride 101 mmol/L (98-107); Creatinine Clearance Estimated 104 mL/min (50-200); Creatinine,Serum 0.80 mg/dl (0.52-1.04); Estimated Glomerular Filt Rate 81 ml/min (>60); GFR (African American) 98 ML/MIN (>60); Globulin 3.5 g/dL (1.3-3.2); Glucose 147 mg/dl (74-100); Total Protein,Serum 8.5 g/dl (6.3-8.2)
[2025-05-27 02:42] LABS: Alkaline Phosphatase 77 U/L (38-126); Lipase 197 U/L (23-300)
[2025-05-27] MEDS: IOPAMIDOL-370 (76%);100ML BOTTLE 75 ML IV (03:10)
[2025-05-27] MEDS: SODIUM CHLORIDE 0.9% 10ML SYR (RAD ONLY) 10 ML IV (03:10)
[2025-05-27 03:13] LABS: Color,Urine Yellow (Yellow); Glucose,Urine (UA) 0 (Negative); Ketones,Urine 0 (Negative); PH,Urine 7.0 (5.0-8.5); Protein,Urine 0 (Negative); Specific Gravity, Urine 1.015 (1.005-1.030)
[2025-05-27 03:14] LABS: Bilirubin,Urine Negative (Negative); Leukocyte Esterase,Urine Trace (Negative); Urobilinogen,Urine 0.2 EU/dl (0.2)
[2025-05-27 03:17] LABS: Amorphous Sediment,Urine 1+ /lpf; Bacteria,Urine 2+ /lpf
[2025-05-27 03:30] LABS: Hepatitis C Ab Qual. W/ RFX NEGATIVE (Negative)
[2025-05-27] MEDS: PROMETHAZINE HCL 25MG/ML 1ML VIAL 25 MG IV (03:34)
[2025-05-27] MEDS: TAMSULOSIN 0.4MG CAPSULE 0.4 MG PO (03:59)
[2025-05-27 04:44] VITALS: BP 113/81; PULSE 83; RESP 16; TEMP 36.7; O2SAT 97
== END 2025-05-27 05:18 | disposition home or self-care (01) ==
PROVIDERS: Emergency Provider Emergency Medicine; PCP Family Medicine
DX: N13.2 Hydronephrosis with renal and ureteral calculous obstruction (principal); F17.210 Nicotine dependence, cigarettes, uncomplicated
CPT/HCPCS: 74177; 80053; 81001; 83690; 84703; 85025; 86803; 87086; 87389; 96374; 96375; 96376; 99285; J1171; J1885; J2405; J2550; Q9967